=== PATIENT | female | born 1955 | race Caucasian/White ===

== ENCOUNTER 2016-09-24 14:47 | Emergency (ER) | payer OTHER ==
[~2016-09-24] VITALS: Ht 154.9 cm; Wt 78.0 kg
[~2016-09-24 14:47] MED LIST: ASPI81TA28 PO; BCTROWC TOP; BETA0.1O TOP; CETI10TA84 PO; CHOL200010 PO; CYM/30 PO; CYM/60 PO; GABA800T PO; HMLI SQ; INSDGI SC; KETO2CRE14 TOP; LAMO100T16 PO; LPT/40 PO; MECL1TAB42 PO; MELO15TA4 PO; MEMA5TAB2 PO; MULTTAB58 PO; OMEP-199 PO; ONDA4TAB46 PO; OXYB5TAB21 PO; OXYC-57 PO; PHEN32.44 PO; RANI300T2 PO; SENN8.6T94 PO; THIA100T11 PO; TRIA0.1C20 TOP
[2016-09-24 14:51] VITALS: TEMP 36.9; Ht 154.9 cm; Wt 78.0 kg
--- NOTE | 2016-09-24 15:39 | EMERGENCY ROOM VISIT NOTE ---
History Report prepared by Malissa: Juan Carlos Garcia Under the Supervision of: Dr. Craig Crowell M.D. First contact with patient: 15:26 Chief Complaint: SINUS CONGESTION/PRESSURE Stated Complaint: SINUS, SORE EARS, FEVER, SWELLING ALL THE TIME Nursing Triage Summary: patient with fever chills cough and congestion for two weeks. History of Present Illness The patient is a 61 year old female who presents to the Emergency Room with complaints of persistent sinus congestion beginning 2 weeks ago. She notes she has had fevers for the past two weeks ranging from 99 to 103. She states she has called 6 times to make an appointment with her PCP but has not been able to be seen. She notes her sinuses were infected, they seemed to clear, but are now infected again. She adds her ears are also now infected. The patient reports having occasional shortness of breath but uses an inhaler which relieves this. She denies passing out. The patient states she has been sweating for 4 months from her head to hips which is worse when she has a fever. She reports she had an US on her pituitary gland and it was thought this was the cause of her sweating. The patient states she was admitted last month with sepsis and pneumonia. She is not currently on steroids and she has finished her Penicillin and Augmentin. The patient lives alone and notes having a history of asthma. She adds she recently broke her right foot. Source of History: patient Onset: 2 weeks ago Position: other (sinus) Quality: other (sinus congestion/illness) Timing: other (persistent) Associated Symptoms: + SOB, + fevers (99 to 103), No LOC Note: The patient notes her ears feel infected, and notes sweating for 4 months. Review of Systems See HPI for pertinent positives & negatives. A total of 10 systems reviewed and were otherwise negative. Past Medical & Surgical Medical Problems: (1) Alopecia (2) Altered mental state (3) Ankle fracture, right (4) Chronic back pain (5) CVA (cerebral vascular accident) (6) Depression (7) Diabetes mellitus type 2 in obese (8) Diabetic peripheral neuropathy associated with type 2 diabetes mellitus (9) Diastolic dysfunction (10) Dyslipidemia (11) Epilepsy (12) Gastroparesis (13) Generalized anxiety disorder (14) Generalized osteoarthritis (15) GERD (gastroesophageal reflux disease) (16) Migraine (17) Obesity (BMI 30.0-34.9) (18) WESTON (obstructive sleep apnea) (19) Restless leg syndrome (20) Trimalleolar fracture Surgical Problems: (1) History of carpal tunnel surgery (2) History of cholecystectomy (3) History of tonsillectomy and adenoidectomy (4) History of total hysterectomy Family History Diabetes mellitus FH: heart disease Hypertension Kidney disease Kidney stones No pertinent family history Seizures Social History Smoking Status: Never Smoker Alcohol Use: none Drug Use: none Marital Status: Occupation Status: disabled Current/Historical Medications Scheduled Aspirin (Aspirin Ec), 81 MG PO DAILY Atorvastatin (Lipitor), 40 MG PO DAILY Cetirizine (Zyrtec), 10 MG PO DAILY Cholecalciferol (Vitamin D), 2,000 INTER.UNIT PO DAILY Duloxetine HCl (Cymbalta), 30 MG PO HS Duloxetine HCl (Cymbalta), 60 MG PO HS Gabapentin (Neurontin), 800 MG PO TID Insulin Glargine (Lantus), 15 UNITS SC AMPM Insulin Lispro (Humalog), 10 UNITS SQ WM Ketoconazole 2% (Nizoral 2%), 1 APPLN TOP DAILY Lamotrigine (Lamictal), 250 MG PO BID Memantine Hcl (Namenda), 5 MG PO BID Multiple Vitamin (Multivitamin), 1 TAB PO DAILY Omeprazole Magnesium (Omeprazole Magnesium), 20.6 MG PO DAILY Oxybutynin Chloride (Ditropan Xl), 5 MG PO DAILY Phenobarbital (Phenobarbital), 64.8 MG PO BID Ranitidine (Zantac), 300 MG PO HS Sennosides (Sennosides), 17.2 MG PO BID Thiamine Hcl (Vitamin B-1), 100 MG PO DAILY Triamcinolone Acet 0.1% (Aristocort 0.1%), 1 APPLN TOP BID UD Scheduled PRN Betamethasone Saniya 0.1% (Valisone 0.1%), 1 APPLN TOP BID PRN for Itch/Scalp Meclizine Hcl (Meclizine Hcl), 25 MG PO TID PRN for Dizziness Meloxicam (Meloxicam), 15 MG PO TID PRN for Pain Morphine Sulfate Ir (Morphine Sulfate Ir), 15 MG PO TID PRN for Pain Mupirocin 2% (Bactroban 2%), 1 APPLN TOP TID PRN for Sores on Thighs Ondansetron Hcl (Zofran), 4 MG PO Q6H PRN for Nausea Allergies Coded Allergies: Neomycin (Verified Allergy, Intermediate, rash, 05/14/16) Rosiglitazone (Verified Allergy, Intermediate, edema, 05/14/16) Sulfa Antibiotics (Verified Allergy, Intermediate, rash, 05/14/16) Sumatriptan (Verified Allergy, Intermediate, rash, 05/14/16) Dihydroergotamine (Verified Allergy, Unknown, unknown, 05/14/16) Phenytoin (Verified Allergy, Unknown, unknown, 05/14/16) Moxifloxacin (Verified Adverse Reaction, Severe, seizure, 05/14/16) Tramadol (Verified Adverse Reaction, Severe, seizure, 05/14/16) Donepezil (Verified Adverse Reaction, Intermediate, angry, 05/14/16) Latex (Verified Adverse Reaction, Intermediate, BURN, , 05/14/16) Quetiapine (Verified Adverse Reaction, Intermediate, weakness in legs, 05/14) Rizatriptan (Verified Adverse Reaction, Intermediate, itching, 05/14/16) Quinine (Verified Adverse Reaction, Mild, nausea/vomiting, 05/14/16) Verapamil (Verified Adverse Reaction, Mild, NAUSEA VOMITING, 05/14/16) Physical Exam Vital Signs Date Time Temp Pulse Resp B/P Pulse Ox O2 Delivery O2 Flow Rate FiO2 09/24/16 16:18 89 18 159/80 98 Room Air 09/24/16 14:51 36.9 97 20 121/93 99 Room Air Physical Exam GENERAL: Patient is well appearing and in no acute distress. HEENT: No acute trauma, normocephalic atraumatic, mucous membranes moist, no nasal congestion, no scleral icterus. EARS: right: mild effusion, no erythema; left: normal TMs. NECK: No stridor, no adenopathy, no meningismus, trachea is midline. LUNGS: No dyspnea. Clear to auscultation and equal bilaterally. No wheeze, no rhonchi. HEART: Regular rate and rhythm. No murmurs, rubs, gallops appreciated. ABDOMEN: Soft, nontender, bowel sounds positive, no masses appreciated, no peritonitis. BACK: No midline tenderness, no CVA tenderness EXTREMITIES: Normal motion all extremities, no cyanosis, no edema. Boot noted on right lower leg. NEUROLOGIC: Alert and oriented, no acute motor or sensory deficits, no focal weakness, cranial nerves grossly intact. SKIN: No rash, no jaundice, no diaphoresis. Medical Decision & Procedures ER Provider Diagnostic Interpretation: X ray results and stated below per my interpretation and radiologist interpretation. Other radiology results and stated below per my review and radiologist interpretation: CHEST ONE VIEW PORTABLE FINDINGS: The cardiac and mediastinal contours remain stable. The left central line is been removed. There had been interval resolution of the interstitial edema pattern. Slight prominence of the left basilar markings, while nonspecific are likely atelectatic. There is no lobar consolidation. There is no failure. There are no pleural effusions. There is an old ununited proximal right humeral fracture with erosive changes. IMPRESSION: 1. Interval removal of the left central line 2. Interval resolution of the interstitial edema 3. Wispy opacities at the left lung base, likely atelectatic Electronically signed by: Edwin Patrick M.D. 09/24/2016 3:52 PM Dictated Date/Time: 09/24/2016 3:50 PM Laboratory Results Test 09/24/16 15:35 Influenza Type A Antigen Neg for Influ A (NEG) Influenza Type B Antigen Neg for Influ B (NEG) Laboratory results as reviewed by me. ED Course 1528: The patient was evaluated in room B5. A complete history and physical exam was performed. I offered to called her PCP to set up an appointment and she declined. 1555: I reassessed the patient and she is feeling the same. 1616: The patient would like to go home and does not want any further lab testing. 1620: Reevaluated the patient. Discussed results and discharge instructions: She verbalized understanding and agreement. The patient is ready for discharge. Medical Decision 61 yr old female arrives for evaluation of runny nose and cough. She looks well and is in no distress. She is requesting evaluation for her periodic sweating over the last 4 months though admits she has had extensive work-up for this. Admits she was seen at local outpatient ortho clinic before coming over here. She has normal CXR without evidence of pneumonia re-occurrence. Patient after CXR is requesting discharge. Initially stated she was OK with blood taken but she is going home anyways. As she is not septic, in no distress and vitals normal I do not see clear indication for checking these if she is going home anyways. Flu is negative. She will follow up with PCP. She has report of persistent sweating though is not sweating here and this has apparently been worked up extensively. She likely has mild URI that seems to be going around the area. RTED with worsening or other concerns. [place] Drug Monitoring Program Search Results: patient reviewed within database Drug Monitoring Findings: Multiple control prescriptions over the last few months. Impression Primary Impression: Upper respiratory infection Scribe Attestation The scribe's documentation has been prepared under my direction and personally reviewed by me in its entirety. I confirm that the note above accurately reflects all work, treatment, procedures, and medical decision making performed by me. Departure Information Dispostion Home / Self-Care Referrals No Doctor, Assigned (PCP) Patient Instructions ED URI Viral, My [facility] Additional Instructions It is important you have Primary Care Provider to help evaluate your medical conditions. We are always here to help. Problem Qualifiers Primary Impression: Upper respiratory infection URI type: unspecified URI Qualified Codes: J06.9 - Acute upper respiratory infection, unspecified
[2016-09-24] MEDS ORDERED: MORP15TA PO (15:51)
[2016-09-24] MEDS ORDERED: MELO15TA4 PO (15:52)
--- NOTE | 2016-09-24 15:54 | DIAGNOSTIC IMAGING REPORT ---
CHEST ONE VIEW PORTABLE CLINICAL HISTORY: cough FEVER COMPARISON STUDY: 05/13/2016 FINDINGS: The cardiac and mediastinal contours remain stable. The left central line is been removed. There had been interval resolution of the interstitial edema pattern. Slight prominence of the left basilar markings, while nonspecific are likely atelectatic. There is no lobar consolidation. There is no failure. There are no pleural effusions. There is an old ununited proximal right humeral fracture with erosive changes.[ IMPRESSION: 1. Interval removal of the left central line 2. Interval resolution of the interstitial edema 3. Wispy opacities at the left lung base, likely atelectatic Electronically signed by: Edwin Patrick M.D. 09/24/2016 3:52 PM Dictated Date/Time: 09/24/2016 3:50 PM
[2016-09-24 16:18] VITALS: BP 159/80; PULSE 89; O2SAT 98
== END 2016-09-24 16:32 | disposition home or self-care (01) ==
LOC: C.EDB 14:49
DX: J06.9 Acute upper respiratory infection, unspecified (principal); Z86.73 Personal history of transient ischemic attack (TIA), and cerebral infarction without residual deficits; E11.40 Type 2 diabetes mellitus with diabetic neuropathy, unspecified; E78.5 Hyperlipidemia, unspecified; G40.909 Epilepsy, unspecified, not intractable, without status epilepticus; K31.84 Gastroparesis; M19.90 Unspecified osteoarthritis, unspecified site; K21.9 Gastro-esophageal reflux disease without esophagitis; G47.33 Obstructive sleep apnea (adult) (pediatric); E66.9 Obesity, unspecified; G25.81 Restless legs syndrome; Z83.3 Family history of diabetes mellitus; Z79.82 Long term (current) use of aspirin; Z79.4 Long term (current) use of insulin; Z79.899 Other long term (current) drug therapy

== ENCOUNTER → 2017-04-17 | Outpatient (CLI) | payer OTHER ==
[~2017-04-17] MED LIST changes: +MORP15TA PO; -OXYC-57 PO
[2017-04-17 17:45] LABS: ALT/SGPT 30 U/L (12-78); AST/SGOT 22 U/L (15-37); BLOOD UREA NITROGEN 26 mg/dl (7-18); BUN/CREATININE RATIO 27.8 (10-20); CALCIUM 8.3 mg/dl (8.5-10.1); CARBON DIOXIDE 23 mmol/L (21-32); CHLORIDE 110 mmol/L (98-107); CREATININE 0.93 mg/dl (0.60-1.20); GLUCOSE 131 mg/dl (70-99); POTASSIUM 4.7 mmol/L (3.5-5.1); SODIUM 138 mmol/L (136-145)
[2017-04-17 17:56] LABS: ALB/GLOB RATIO 0.7 (0.9-2); ALKALINE PHOSPHATASE 228 U/L (45-117); CHOLESTEROL 172 mg/dl (0-200); CHOLESTEROL/HDL RATIO 2.9; HDL CHOLESTEROL 60 mg/dl; LDL CHOLESTEROL CALCULATED 69 mg/dl; THYROID STIMULATING HORMONE 0.505 uIu/ml (0.300-4.500); TRIGLYCERIDES 214 mg/dl (0-150); VERY LOW DENSITY LIPOPROT CALC 43 mg/dl
[2017-04-18 07:49] LABS: ESTIMATED AVERAGE GLUCOSE 292 mg/dl; HA1C FLAG Normal (Normal)
== END | disposition home or self-care (01) ==
LOC: C.LABPBG 13:58
PROVIDERS: ATTEND Neuromusculoskeletal Medicine & OMM
DX: Z00.00 Encounter for general adult medical examination without abnormal findings (principal); E11.9 Type 2 diabetes mellitus without complications

== ENCOUNTER → 2017-05-21 | Outpatient (CLI) | payer OTHER ==
[2017-05-21 16:08] LABS: ALKALINE PHOSPHATASE 240 U/L (45-117); ALT/SGPT 28 U/L (12-78); AST/SGOT 24 U/L (15-37)
== END | disposition home or self-care (01) ==
LOC: C.LAB1850 14:10
PROVIDERS: ATTEND Neuromusculoskeletal Medicine & OMM
DX: R79.89 Other specified abnormal findings of blood chemistry (principal)

== ENCOUNTER → 2017-10-06 | Outpatient (CLI) | payer OTHER ==
[~2017-10-06] MED LIST changes: +MELO-83 PO; -MELO15TA4 PO
[2017-10-06 17:35] LABS: CREATININE RANDOM URINE 74.2 mg/dl
== END | disposition home or self-care (01) ==
LOC: C.LABSPEC 15:26
PROVIDERS: ATTEND Physician Assistant
DX: E11.65 Type 2 diabetes mellitus with hyperglycemia (principal)

== ENCOUNTER → 2017-11-20 | Outpatient (CLI) | payer OTHER ==
[2017-11-20 17:35] LABS: BASO % 0.3 %; BASO ABS # 0.03 K/uL (0-0.2); EOS % 1.5 %; EOS ABS # 0.15 K/uL (0-0.5); HEMATOCRIT 37.7 % (37-47); IG# 0.05 K/uL (0.00-0.02); LYMPH % 23.6 %; LYMPH ABS # 2.41 K/uL (1.2-3.4); MEAN CELL VOLUME 83.8 fL (80-100); MEAN CORPUSCULAR HEMOGLOBIN 28.9 pg (25-34); MEAN CORPUSCULAR HGB CONC 34.5 g/dl (32-36); MEAN PLATELET VOLUME 9.8 fL (7.4-10.4); MONO % 3.8 %; MONO ABS # 0.39 K/uL (0.11-0.59); NEUT % 70.3 %; NEUT ABS # 7.18 K/uL (1.4-6.5); PLATELET COUNT 235 K/uL (130-400); RED CELL DISTRIBUTION WIDTH CV 13.3 % (11.5-14.5); RED CELL DISTRIBUTION WIDTH SD 40.3 fL (36.4-46.3); WHITE BLOOD COUNT 10.21 K/uL (4.8-10.8)
[2017-11-20 17:56] LABS: CREATININE RANDOM URINE 26.4 mg/dl
[2017-11-20 19:10] LABS: ALBUMIN 3.5 gm/dl (3.4-5.0); ALKALINE PHOSPHATASE 242 U/L (45-117); ALT/SGPT 25 U/L (12-78); AST/SGOT 16 U/L (15-37); BLOOD UREA NITROGEN 13 mg/dl (7-18); CALCIUM 9.1 mg/dl (8.5-10.1); CARBON DIOXIDE 25 mmol/L (21-32); POTASSIUM 3.9 mmol/L (3.5-5.1); SODIUM 132 mmol/L (136-145); TOTAL PROTEIN 8.1 gm/dl (6.4-8.2)
[2017-11-20 19:11] LABS: GLUCOSE 429 mg/dl (70-99)
[2017-11-21 07:28] LABS: HEMOGLOBIN A1C 11.5 % (4.5-5.6)
== END | disposition home or self-care (01) ==
LOC: C.LABPBG 15:52
PROVIDERS: ATTEND Family Medicine
DX: M79.672 Pain in left foot (principal); L08.9 Local infection of the skin and subcutaneous tissue, unspecified; E11.65 Type 2 diabetes mellitus with hyperglycemia

== ENCOUNTER → 2017-11-24 | Outpatient (CLI) | payer OTHER | END | disposition home or self-care (01) | LOC: C.LABSPEC 05:25 | PROVIDERS: ATTEND Podiatrist Foot & Ankle Surgery | DX: E11.9 Type 2 diabetes mellitus without complications (principal); L03.116 Cellulitis of left lower limb ==

== ENCOUNTER → 2018-04-13 | Outpatient (CLI) | payer OTHER ==
[~2018-04-13] MED LIST changes: -BCTROWC TOP; -BETA0.1O TOP; -CETI10TA84 PO; +DICL-201 PO; -HMLI SQ; -INSDGI SC; +INSDGIPEN SC; +INSU100I SC; -KETO2CRE14 TOP; -MELO-83 PO; -MORP15TA PO; -MULTTAB58 PO; -OMEP-199 PO; -ONDA4TAB46 PO; +PRLSR20 PO; -SENN8.6T94 PO; -THIA100T11 PO; -TRIA0.1C20 TOP
[2018-04-13 16:43] LABS: BASO % 0.3 %; BASO ABS # 0.03 K/uL (0-0.2); EOS % 2.6 %; EOS ABS # 0.26 K/uL (0-0.5); HEMOGLOBIN 12.4 g/dL (12.0-16.0); IG# 0.03 K/uL (0.00-0.02); LYMPH % 28.3 %; LYMPH ABS # 2.78 K/uL (1.2-3.4); MEAN CELL VOLUME 85.6 fL (80-100); MEAN CORPUSCULAR HEMOGLOBIN 28.7 pg (25-34); MEAN CORPUSCULAR HGB CONC 33.5 g/dl (32-36); MEAN PLATELET VOLUME 10.6 fL (7.4-10.4); MONO % 4.7 %; MONO ABS # 0.46 K/uL (0.11-0.59); NEUT % 63.8 %; NEUT ABS # 6.27 K/uL (1.4-6.5); PLATELET COUNT 275 K/uL (130-400); RED CELL DISTRIBUTION WIDTH CV 13.6 % (11.5-14.5); WHITE BLOOD COUNT 9.83 K/uL (4.8-10.8)
[2018-04-13 17:14] LABS: FOLLICLE STIMULAT HORMONE 39.68 IU/L; PROLACTIN 0.76 ng/mL
[2018-04-13 17:22] LABS: ALT/SGPT 23 U/L (12-78); AST/SGOT 15 U/L (15-37); BLOOD UREA NITROGEN 10 mg/dl (7-18); CALCIUM 8.8 mg/dl (8.5-10.1); CARBON DIOXIDE 24 mmol/L (21-32); CHOLESTEROL 225 mg/dl (0-200); CREATININE 0.91 mg/dl (0.60-1.20); GLUCOSE 244 mg/dl (70-99); LDL CHOLESTEROL CALCULATED 137 mg/dl; POTASSIUM 4.2 mmol/L (3.5-5.1); SODIUM 133 mmol/L (136-145)
[2018-04-14 06:15] LABS: HEMOGLOBIN A1C 11.7 % (4.5-5.6)
[2018-04-20 18:19] LABS: INSULIN LIKE GROWTH FACTOR-I 141 ng/mL (41-279)
== END | disposition home or self-care (01) ==
LOC: C.LABPBG 12:44
PROVIDERS: ATTEND Family Medicine
DX: R94.6 Abnormal results of thyroid function studies (principal); E11.65 Type 2 diabetes mellitus with hyperglycemia; E78.5 Hyperlipidemia, unspecified; I10 Essential (primary) hypertension; E55.9 Vitamin D deficiency, unspecified

== ENCOUNTER 2018-11-11 18:50 | Inpatient (IN) ==
[2018-11-11] MEDS ORDERED: SODIUM CHLORIDE 0.9% 1000ML 2,000 ML IV SCH (19:15)
[2018-11-11 19:34] LABS: Basophils # (auto) 0.04 K/uL (0-0.2); Basophils % (auto) 0.5 %; Eosinophils # (auto) 0.45 K/uL (0-0.5); Eosinophils % (auto) 5.1 %; Hematocrit (blood only) 27.5 % (37-47); Hemoglobin 9.1 g/dL (12.0-16.0); Immature Granulocytes # (auto) 0.03 K/uL (0.00-0.02); Immature Granulocytes % (auto) 0.3 %; Lymphocytes # (auto) 2.44 K/uL (1.2-3.4); Lymphocytes % (auto) 27.5 %; Mean Corpuscular Hgb Conc 33.1 g/dL (32-36); Mean Corpuscular Volume 86.8 fL (80-100); Mean Platelet Volume 10.3 fL (7.4-10.4); Monocytes # (auto) 0.53 K/uL (0.11-0.59); Neutrophils # (auto) 5.39 K/uL (1.4-6.5); Neutrophils % (auto) 60.6 %; Platelet Count 187 K/uL (130-400); RDW Standard Deviation 41.5 fL (36.4-46.3); Red Blood Count 3.17 M/uL (4.2-5.4); White Blood Count 8.88 K/uL (4.8-10.8)
[2018-11-11 19:39] LABS: Base Excess VBG -5.3 mEq/L; Oxygen Saturation VBG 84.4 %; pH VBG 7.35 (7.36-7.41)
[2018-11-11 19:49] LABS: Prothrombin Time 10.1 Seconds (9.0-12.0)
--- NOTE | 2018-11-11 19:50 | XRay Report ---
XR chest 1V portable HISTORY: 63 years-old Female weakness acute generalized weakness COMPARISON: Chest radiograph 02/03/2018 TECHNIQUE: Portable AP view of the chest FINDINGS: Cardiomediastinal and hilar silhouettes are unchanged. Mild right hemidiaphragmatic elevation. No pne umothorax, pleural effusion or overt pulmonary edema. Subsegmental left basilar opacities suggest ate lectasis/scarring. Remote posttraumatic with advanced degenerative changes about the right shoulder r edemonstrated. Degenerative changes of the left shoulder and spine also noted. IMPRESSION: No acute process. The above report was generated using voice recognition software. It may contain grammatical, syntax o r spelling errors. Electronically signed by: Andrews De Guzman M.D. 11/11/2018 7:49 PM
[2018-11-11 19:54] LABS: iSTAT Creatinine 1.6 mg/dl (0.6-1.3); iSTAT Hemoglobin 9.5 g/dl (12.0-16.0); iSTAT Ionized Calcium 1.17 mmol/l (1.12-1.32); iSTAT Potassium 5.2 mEq/L (3.3-5.0)
[2018-11-11 19:58] LABS: Alanine Aminotransferase 15 U/L (12-78); Albumin Globulin Ratio 0.7 (0.9-2); Albumin Level 2.8 gm/dl (3.4-5.0); Alkaline Phosphatase 196 U/L (45-117); Aspartate Aminotransferase 9 U/L (15-37); BUN Creatinine Ratio 19.8 (10-20); Bilirubin,Total 0.1 mg/dl (0.2-1); Blood Urea Nitrogen 36 mg/dl (7-18); Calcium 7.9 mg/dl (8.5-10.1); Carbon Dioxide 20 mmol/L (21-32); Chloride 104 mmol/L (98-107); Creatine Kinase 84 U/L (26-192); Creatinine Clr Calc Pharmacy 32.7 ml/min; Est GFR (Non-African American) 28.5; Globulin 4.1 gm/dl (2.5-4.0); Glucose 407 mg/dl (70-99); Sodium 131 mmol/L (136-145); Total Protein 6.9 gm/dl (6.4-8.2); Troponin I < 0.015 ng/ml (0-0.045)
[2018-11-11] MEDS ORDERED: NovoLIN-R INSULIN PER UNIT CHARGE IV STA ×2 (19:58→21:20)
[2018-11-11 20:09] LABS: Beta-Hydroxybutyrate 0.74 mg/dl (0.2-2.81)
[2018-11-11 21:58] LABS: Appearance Urine Clear (Clear); Bacteria Urine Automated Negative (Negative); Bilirubin Urine Negative (Negative); Blood Urine Negative (Negative); Cast Urine Automated 0 /lpf (0-5); Color Urine Yellow; Epithelial Cell Urine Auto 20-30 /lpf (0-5); Glucose Urine UA 2+ (Negative); Ketones Urine Negative (Negative); Leukocyte Esterase Urine Negative (Negative); Nitrite Urine Negative (Negative); Protein Urine Trace (Negative); RBC Urine Automated 0-4 /hpf (0-4); Specific Gravity Urine 1.019 (1.000-1.030); Urobilinogen Urine Negative (Negative)
[2018-11-11] MEDS ORDERED: LORazepam 1 MG TAB SL STA (22:05)
--- NOTE | 2018-11-11 22:45 | CT Scan Report ---
CT head/brain wo con CLINICAL HISTORY: 63 years-old Female with confused. Acutely altered mental status with confusion TECHNIQUE: Multiple axial CT images of the head were obtained without contrast. A dose lowering tech nique was utilized adhering to the principles of ALARA. CT DOSE: 537.48 mGy.cm COMPARISON: CT head 05/13/2016. FINDINGS: No acute intracranial hemorrhage, midline shift, intracranial mass, hydrocephalus, territorial ischem ia or abnormal extra-axial collection. The calvarium is intact. Hyperostosis frontalis interna. The paranasal sinuses, mastoid air cells, an d middle ear cavities are clear. Prior bilateral cataract repair. IMPRESSION: No acute intracranial abnormality. The above report was generated using voice recognition software. It may contain grammatical, syntax o r spelling errors. Electronically signed by: Andrews De Guzman M.D. 11/11/2018 10:44 PM
--- NOTE | 2018-11-11 23:35 | Emergency Department Note ---
Entered by Tree Venegas acting as a scribe for Andre Nair DO History of Present Illness General Chief complaint: Hyperglycemia Stated complaint: WEAKNESS, HYPERGLYCEMIA Source: patient, EMS and other (nurse) History of Present Illness Onset (ago): minute(s) (prior to arrival) Location: head (global) Pain Consistency: + other (persistent) Quality: + other (hyperglycemia) Associated symptoms: + cough and + weakness The patient is a 63 year old female who presents to the Emergency Room with persistent hyperglycemia measured prior to arrival. The nurse reports that the patient was evaluated at her PCP prior to arrival in [place] for new ge neralized weakness over the past two days, and her blood sugar was over 500 at the time and confusion. Per EMS, her blood sugar was [address] the hospital. The patient states that she has been taking her diabetes and seizure medication, but she has not been taking some of her other medications recently because it takes too long to count them out. The patient states that she was started on prednisone two days ago for breathing difficulties and chronic back pain. She reports a headache beginning yesterday that started gradually and is similar to prior migraines. She notes a dry cough. She denies abdominal pain or urinary symptoms. She states that her most recent dose of insulin was at about 11:00 this morning. No other exacerbating or remitting factors. Home Medications Home Medications Medication Instructions Recorded Confirmed Type albuterol sulfate [ProAir HFA] 2 puff INHALATION Q4 PRN 11/11/18 11/11/18 History amlodipine 10 mg PO DAILY 11/11/18 11/11/18 History aspirin [Aspirin Low Dose] 81 mg PO DAILY 11/11/18 11/11/18 History atorvastatin 40 mg PO HS 11/11/18 11/11/18 History cetirizine [Zyrtec] 10 mg PO DAILY 11/11/18 11/11/18 History dulaglutide [Trulicity] 1.5 mg SUBCUT WK 11/11/18 11/11/18 History duloxetine 60 mg PO DAILY 11/11/18 11/11/18 History duloxetine [Cymbalta] 30 mg PO DAILY 11/11/18 11/11/18 History ergocalciferol (vitamin D2) 50,000 unit PO WK 11/11/18 11/11/18 History [Vitamin D2] ferrous sulfate [Iron (ferrous 325 mg PO DAILY 11/11/18 11/11/18 History sulfate)] fluticasone [Flonase Allergy 1 - 2 spray INTRANASAL DAILY 11/11/18 11/11/18 History Relief] gabapentin 1,600 mg PO AMPM 11/11/18 11/11/18 History insulin aspart U-100 [Novolog 14 unit SUBCUT BID 11/11/18 11/11/18 History Flexpen U-100 Insulin] insulin aspart U-100 [Novolog 15 units SUBCUT UD 11/11/18 11/11/18 History Flexpen U-100 Insulin] insulin glargine [Lantus Solostar 24 unit SUBCUT HS 11/11/18 11/11/18 History U-100 Insulin] ketorolac 1 ml IM UD 11/11/18 11/11/18 History lamotrigine [Lamictal] 200 mg PO BID 11/11/18 11/11/18 History meclizine 25 mg PO TID PRN 11/11/18 11/11/18 History memantine 5 mg PO BID 11/11/18 11/11/18 History menthol-zinc oxide [Calmoseptine] 1 applic TOPICAL DAILY PRN 11/11/18 11/11/18 History nortriptyline [Pamelor] 50 mg PO HS 11/11/18 11/11/18 History ondansetron HCl 4 mg PO TID PRN 11/11/18 11/11/18 History oxybutynin chloride 5 mg PO DAILY 11/11/18 11/11/18 History phenobarbital 64.8 mg PO BID 11/11/18 11/11/18 History pramipexole 1 mg PO DAILY 11/11/18 11/11/18 History ramipril 10 mg PO DAILY 11/11/18 11/11/18 History ranitidine HCl [Zantac] 300 mg PO HS 11/11/18 11/11/18 History ropinirole 2 mg PO TID 11/11/18 11/11/18 History Allergies Allergy/AdvReac Type Severity Reaction Status Date / Time neomycin Allergy Intermediate rash Verified 11/11/18 20:07 rosiglitazone Allergy Intermediate edema Verified 11/11/18 20:07 Sulfa (Sulfonamide Allergy Intermediate rash Verified 11/11/18 20:07 Antibiotics) sumatriptan Allergy Intermediate rash Verified 11/11/18 20:07 dihydroergotamine Allergy Unknown unknown Verified 11/11/18 20:07 phenytoin Allergy Unknown unknown Verified 11/11/18 20:07 acetaminophen [From Percocet] Allergy Unknown Verified 11/11/18 20:08 indomethacin Allergy Unknown Verified 11/11/18 20:08 oxycodone [From Percocet] Allergy Unknown Verified 11/11/18 20:08 moxifloxacin AdvReac Severe seizure Verified 11/11/18 20:07 tramadol AdvReac Severe seizure Verified 11/11/18 20:07 donepezil AdvReac Intermediate angry Verified 11/11/18 20:07 latex AdvReac Intermediate BURN, Verified 11/11/18 20:07 quetiapine AdvReac Intermediate weakness Verified 05/14/16 08:15 in legs rizatriptan AdvReac Intermediate itching Verified 05/14/16 08:15 quinine AdvReac Mild nausea/vomi Verified 05/14/16 08:15 ting verapamil AdvReac Mild NAUSEA Verified 05/14/16 08:15 VOMITING Past Med/Surg History Medical History Chronic back pain (Chronic) Diabetic peripheral neuropathy associated with type 2 diabetes mellitus (Chronic) GERD (gastroesophageal reflux disease) (Chronic) Generalized osteoarthritis (Chronic) Migraine (Chronic) Alopecia (Chronic) Gastroparesis (Chronic) Epilepsy (Chronic) Generalized anxiety disorder (Chronic) Restless leg syndrome (Chronic) Diabetes mellitus type 2 in obese (Chronic) Depression (Chronic) Dyslipidemia (Chronic) CVA (cerebral vascular accident) Surgical History History of cholecystectomy (Resolved) Family History Other Diabetes Heart disease Seizures Social History Feels Safe at Home: Yes Smoking Status: Never smoker Review of Systems See HPI for pertinent positives & negatives. and A total of 10 systems reviewed and were otherwise negative Physical Exam Vital Signs Vital Signs - 24 hr 11/11/18 19:04 11/11/18 20:40 11/11/18 21:54 Temperature 36.7 C Temperature Source Oral Sepsis Recent Fever Within 48 Hours No Sepsis Action Taken by Nursing No Action Required Pulse Rate 64 64 Pulse Rate [Finger] 69 Respiratory Rate 19 17 Respiratory Effort / Characteristics Respiratory Depth Respiratory Pattern Blood Pressure 129/69 Blood Pressure [Left Arm] 139/55 L Blood Pressure Mean 89 Blood Pressure Mean [Left Arm] 83 Blood Pressure Position [Left Arm] Pulse Oximetry 97 97 97 Oxygen Delivery Method Room Air Room Air 11/11/18 21:55 11/11/18 23:28 Temperature Temperature Source Sepsis Recent Fever Within 48 Hours Sepsis Action Taken by Nursing Pulse Rate Pulse Rate [Finger] 65 68 Respiratory Rate 18 Respiratory Effort / Characteristics Non-Labored Spontaneous Respiratory Depth Normal Respiratory Pattern Regular Blood Pressure Blood Pressure [Left Arm] 118/58 L 138/64 Blood Pressure Mean Blood Pressure Mean [Left Arm] 78 88 Blood Pressure Position [Left Arm] Lying Pulse Oximetry 97 95 Oxygen Delivery Method Room Air Room Air GENERAL: Sitting up in bed, disheveled, no distress, falling asleep quickly and slurring words EYE EXAM: normal conjunctiva. PERRL and EOM's grossly intact. OROPHARYNX: no exudate, no erythema, lips, buccal mucosa, and tongue normal and mucous membranes are dry NECK: supple, no nuchal rigidity, no adenopathy, non-tender LUNGS: Clear to auscultation. Normal chest wall mechanics HEART: no murmurs, S1 normal and S2 normal ABDOMEN: abdomen soft, non-tender, normo-active bowel, sounds, no masses, no rebound or guarding. BACK: Back is symmetrical on inspection and there is no deformity, no midline tenderness, no CVA tenderness. SKIN: no rashes and no bruising UPPER EXTREMITIES: upper extremities are grossly normal. LOWER EXTREMITIES: No pitting edema. NEURO EXAM: Oriented to person, place but believes it is 2010. Slurred speech. Legs are weak but no focal deficit in the upper or lower extremities. Course ED COURSE: Vital signs were reviewed and were normal The patients medical record was reviewed The above diagnostic studies were performed and reviewed. ED treatments and interventions as stated above. 1856: The patient was evaluated in room C4. A complete history and physical examination was performed. 2249: I consulted Dr. Olivares [facility] Hospitalist. The patient will be reevaluated for hospitalization. Based on the patients age, coexisting illnesses, exam and lab findings the decision to treat as an inpatient was made. The patient remained stable while under my care. The patient will be evaluated for further management. Consultations Consultation #1: I consulted Dr. Olivares [facility] Hospitalist. The patient will be reevaluated for hospitalization. Time: 22:50 Administered Medications Discontinued Medications Sodium Chloride (Nss 1000ml) 2,000 mls @ 999 mls/hr IV .Q2H1M CARMELO Stop: 11/11/18 21:15 Last Infusion: 11/11/18 21:17 Dose: 0 mls/hr Documented by: [id number] Admin: 11/11/18 19:14 Dose: 999 mls/hr Documented by: [id number] Insulin Human Regular (Novolin R U-100 Per Unit) 6 units IV NOW STA Stop: 11/11/18 19:59 Last Admin: 11/11/18 20:05 Dose: 6 units Documented by: [id number] Cosigned by: [id number] Insulin Human Regular (Novolin R U-100 Per Unit) 6 units IV NOW STA Stop: 11/11/18 21:21 Last Admin: 11/11/18 21:52 Dose: 6 units Documented by: [id number] Cosigned by: [id number] Lorazepam (Ativan) 0.5 mg SL NOW STA Stop: 11/11/18 22:06 Last Admin: 11/11/18 22:19 Dose: Not Given Documented by: [id number] Medical Decision Making Differential Diagnosis Differential Diagnosis includes but is not limited to dehydration, stroke, anemi a, hypoglycemia, hyponatremia, hypernatremia, urinary tract infection, pneumonia, bronchitis, sepsis, gastroenteritis, additional abdominal pathology, metabolic abnormalities and infections. Medical Records Attestation: I reviewed the patient's medical records. Home Medications Current Medication List: was personally reviewed by me Laboratory Data Attestation: I reviewed the patient's lab results. Result diagrams: 11/11/18 19:24 11/11/18 19:23 Lab Results 11/11/18 11/11/18 11/11/18 Range/Units 18:59 19:23 19:23 WBC (4.8-10.8) K/uL RBC (4.2-5.4) M/uL Hgb (12.0-16.0) g/dL POC Hgb (12.0-16.0) g/dl Hct (37-47) % POC Hct (37-47) % MCV (80-100) fL MCH (25-34) pg MCHC (32-36) g/dL RDW Std Deviation (36.4-46.3) fL RDW Coeff of Archana (11.5-14.5) % Plt Count (130-400) K/uL MPV (7.4-10.4) fL Immature Gran % (Auto) % Neut % (Auto) % Lymph % (Auto) % [place] % (Auto) % Eos % (Auto) % Baso % (Auto) % Immature Gran # (Auto) (0.00-0.02) K/uL Neut # (Auto) (1.4-6.5) K/uL Lymph # (Auto) (1.2-3.4) K/uL [place] # (Auto) (0.11-0.59) K/uL Eos # (Auto) (0-0.5) K/uL Baso # (Auto) (0-0.2) K/uL PT 10.1 (9.0-12.0) Seconds INR 1.0 (0.9-1.1) VBG pH (7.36-7.41) VBG pCO2 (38-50) mmHg VBG pO2 mmHg VBG HCO3 mmol/L VBG O2 Saturation % VBG Base Excess mEq/L Barometric Pressure mm/Hg POC Sodium (135-144) mEq/L Sodium 131 L (136-145) mmol/L POC Potassium (3.3-5.0) mEq/L Potassium 5.0 (3.5-5.1) mmol/L POC Chloride (101-112) mEq/L Chloride 104 (98-107) mmol/L Carbon Dioxide 20 L (21-32) mmol/L POC Total CO2 (24-31) mEq/l Anion Gap 7.0 (3-11) POC Anion Gap (16-25) mmol/L POC BUN (7-18) mg/dl BUN 36 H (7-18) mg/dl Creatinine 1.84 H (0.6-1.2) mg/dl POC Creatinine (0.6-1.3) mg/dl Est Cr Clr Drug Dosing 32.7 ml/min Est GFR ( Amer) 33.0 Est GFR (Non-Af Amer) 28.5 BUN/Creatinine Ratio 19.8 (10-20) Glucose 407 H* (70-99) mg/dl POC Glucose 415 H* (70-99) POC Glucose (other) (70-99) mg/dl Calcium 7.9 L (8.5-10.1) mg/dl POC Ioniz Calcium Onel (1.12-1.32) mmol/l Total Bilirubin 0.1 L (0.2-1) mg/dl AST 9 L (15-37) U/L ALT 15 (12-78) U/L Alkaline Phosphatase 196 H (45-117) U/L Total Creatine Kinase 84 (26-192) U/L Troponin I < 0.015 (0-0.045) ng/ml Total Protein 6.9 (6.4-8.2) gm/dl Albumin 2.8 L (3.4-5.0) gm/dl Globulin 4.1 H (2.5-4.0) gm/dl Albumin/Globulin Ratio 0.7 L (0.9-2) Beta-Hydroxybutyric Acd 0.74 (0.2-2.81) mg/dl Urine Color Urine Appearance (Clear) Urine pH (4.5-7.5) Ur Specific [place] (1.000-1.030) Urine Protein (Negative) Urine Glucose (UA) (Negative) Urine Ketones (Negative) Urine Blood (Negative) Urine Nitrite (Negative) Urine Bilirubin (Negative) Urine Urobilinogen (Negative) Ur Leukocyte Esterase (Negative) Urine WBC (Auto) (0-5) /hpf Urine RBC (Auto) (0-4) /hpf U Hyaline Cast (Auto) (0-5) /lpf U Epithel Cells (Auto) (0-5) /lpf Urine Bacteria (Auto) (Negative) Phenobarbital (15-40) mcg/mL 11/11/18 11/11/18 11/11/18 Range/Units 19:24 19:24 19:24 WBC 8.88 (4.8-10.8) K/uL RBC 3.17 L (4.2-5.4) M/uL Hgb 9.1 L (12.0-16.0) g/dL POC Hgb (12.0-16.0) g/dl Hct 27.5 L (37-47) % POC Hct (37-47) % MCV 86.8 (80-100) fL MCH 28.7 (25-34) pg MCHC 33.1 (32-36) g/dL RDW Std Deviation 41.5 (36.4-46.3) fL RDW Coeff of Archana 13.0 (11.5-14.5) % Plt Count 187 (130-400) K/uL MPV 10.3 (7.4-10.4) fL Immature Gran % (Auto) 0.3 % Neut % (Auto) 60.6 % Lymph % (Auto) 27.5 % [place] % (Auto) 6.0 % Eos % (Auto) 5.1 % Baso % (Auto) 0.5 % Immature Gran # (Auto) 0.03 H (0.00-0.02) K/uL Neut # (Auto) 5.39 (1.4-6.5) K/uL Lymph # (Auto) 2.44 (1.2-3.4) K/uL [place] # (Auto) 0.53 (0.11-0.59) K/uL Eos # (Auto) 0.45 (0-0.5) K/uL Baso # (Auto) 0.04 (0-0.2) K/uL PT (9.0-12.0) Seconds INR (0.9-1.1) VBG pH 7.35 L (7.36-7.41) VBG pCO2 37 L (38-50) mmHg VBG pO2 49 mmHg VBG HCO3 20 mmol/L VBG O2 Saturation 84.4 % VBG Base Excess -5.3 mEq/L Barometric Pressure 736.4 mm/Hg POC Sodium (135-144) mEq/L Sodium (136-145) mmol/L POC Potassium (3.3-5.0) mEq/L Potassium (3.5-5.1) mmol/L POC Chloride (101-112) mEq/L Chloride (98-107) mmol/L Carbon Dioxide (21-32) mmol/L POC Total CO2 (24-31) mEq/l Anion Gap (3-11) POC Anion Gap (16-25) mmol/L POC BUN (7-18) mg/dl BUN (7-18) mg/dl Creatinine (0.6-1.2) mg/dl POC Creatinine (0.6-1.3) mg/dl Est Cr Clr Drug Dosing ml/min Est GFR ( Amer) Est GFR (Non-Af Amer) BUN/Creatinine Ratio (10-20) Glucose (70-99) mg/dl POC Glucose (70-99) POC Glucose (other) (70-99) mg/dl Calcium (8.5-10.1) mg/dl POC Ioniz Calcium Onel (1.12-1.32) mmol/l Total Bilirubin (0.2-1) mg/dl AST (15-37) U/L ALT (12-78) U/L Alkaline Phosphatase (45-117) U/L Total Creatine Kinase (26-192) U/L Troponin I (0-0.045) ng/ml Total Protein (6.4-8.2) gm/dl Albumin (3.4-5.0) gm/dl Globulin (2.5-4.0) gm/dl Albumin/Globulin Ratio (0.9-2) Beta-Hydroxybutyric Acd (0.2-2.81) mg/dl Urine Color Urine Appearance (Clear) Urine pH (4.5-7.5) Ur Specific [place] (1.000-1.030) Urine Protein (Negative) Urine Glucose (UA) (Negative) Urine Ketones (Negative) Urine Blood (Negative) Urine Nitrite (Negative) Urine Bilirubin (Negative) Urine Urobilinogen (Negative) Ur Leukocyte Esterase (Negative) Urine WBC (Auto) (0-5) /hpf Urine RBC (Auto) (0-4) /hpf U Hyaline Cast (Auto) (0-5) /lpf U Epithel Cells (Auto) (0-5) /lpf Urine Bacteria (Auto) (Negative) Phenobarbital 7.4 L (15-40) mcg/mL 11/11/18 11/11/18 11/11/18 Range/Units 19:42 20:39 21:30 WBC (4.8-10.8) K/uL RBC (4.2-5.4) M/uL Hgb (12.0-16.0) g/dL POC Hgb 9.5 L (12.0-16.0) g/dl Hct (37-47) % POC Hct 28 L (37-47) % MCV (80-100) fL MCH (25-34) pg MCHC (32-36) g/dL RDW Std Deviation (36.4-46.3) fL RDW Coeff of Archana (11.5-14.5) % Plt Count (130-400) K/uL MPV (7.4-10.4) fL Immature Gran % (Auto) % Neut % (Auto) % Lymph % (Auto) % [place] % (Auto) % Eos % (Auto) % Baso % (Auto) % Immature Gran # (Auto) (0.00-0.02) K/uL Neut # (Auto) (1.4-6.5) K/uL Lymph # (Auto) (1.2-3.4) K/uL [place] # (Auto) (0.11-0.59) K/uL Eos # (Auto) (0-0.5) K/uL Baso # (Auto) (0-0.2) K/uL PT (9.0-12.0) Seconds INR (0.9-1.1) VBG pH (7.36-7.41) VBG pCO2 (38-50) mmHg VBG pO2 mmHg VBG HCO3 mmol/L VBG O2 Saturation % VBG Base Excess mEq/L Barometric Pressure mm/Hg POC Sodium 133 L (135-144) mEq/L Sodium (136-145) mmol/L POC Potassium 5.2 H (3.3-5.0) mEq/L Potassium (3.5-5.1) mmol/L POC Chloride 104 (101-112) mEq/L Chloride (98-107) mmol/L Carbon Dioxide (21-32) mmol/L POC Total CO2 19 L (24-31) mEq/l Anion Gap (3-11) POC Anion Gap 16.0 (16-25) mmol/L POC BUN 35 H (7-18) mg/dl BUN (7-18) mg/dl Creatinine (0.6-1.2) mg/dl POC Creatinine 1.6 H (0.6-1.3) mg/dl Est Cr Clr Drug Dosing ml/min Est GFR ( Amer) Est GFR (Non-Af Amer) BUN/Creatinine Ratio (10-20) Glucose (70-99) mg/dl POC Glucose 299 H (70-99) POC Glucose (other) 413 H* (70-99) mg/dl Calcium (8.5-10.1) mg/dl POC Ioniz Calcium Onel 1.17 (1.12-1.32) mmol/l Total Bilirubin (0.2-1) mg/dl AST (15-37) U/L ALT (12-78) U/L Alkaline Phosphatase (45-117) U/L Total Creatine Kinase (26-192) U/L Troponin I (0-0.045) ng/ml Total Protein (6.4-8.2) gm/dl Albumin (3.4-5.0) gm/dl Globulin (2.5-4.0) gm/dl Albumin/Globulin Ratio (0.9-2) Beta-Hydroxybutyric Acd (0.2-2.81) mg/dl Urine Color Yellow Urine Appearance Clear (Clear) Urine pH 5.0 (4.5-7.5) Ur Specific [place] 1.019 (1.000-1.030) Urine Protein Trace H (Negative) Urine Glucose (UA) 2+ H (Negative) Urine Ketones Negative (Negative) Urine Blood Negative (Negative) Urine Nitrite Negative (Negative) Urine Bilirubin Negative (Negative) Urine Urobilinogen Negative (Negative) Ur Leukocyte Esterase Negative (Negative) Urine WBC (Auto) 1-5 (0-5) /hpf Urine RBC (Auto) 0-4 (0-4) /hpf U Hyaline Cast (Auto) 0 (0-5) /lpf U Epithel Cells (Auto) 20-30 H (0-5) /lpf Urine Bacteria (Auto) Negative (Negative) Phenobarbital (15-40) mcg/mL 11/11/18 Range/Units 22:13 WBC (4.8-10.8) K/uL RBC (4.2-5.4) M/uL Hgb (12.0-16.0) g/dL POC Hgb (12.0-16.0) g/dl Hct (37-47) % POC Hct (37-47) % MCV (80-100) fL MCH (25-34) pg MCHC (32-36) g/dL RDW Std Deviation (36.4-46.3) fL RDW Coeff of Archana (11.5-14.5) % Plt Count (130-400) K/uL MPV (7.4-10.4) fL Immature Gran % (Auto) % Neut % (Auto) % Lymph % (Auto) % [place] % (Auto) % Eos % (Auto) % Baso % (Auto) % Immature Gran # (Auto) (0.00-0.02) K/uL Neut # (Auto) (1.4-6.5) K/uL Lymph # (Auto) (1.2-3.4) K/uL [place] # (Auto) (0.11-0.59) K/uL Eos # (Auto) (0-0.5) K/uL Baso # (Auto) (0-0.2) K/uL PT (9.0-12.0) Seconds INR (0.9-1.1) VBG pH (7.36-7.41) VBG pCO2 (38-50) mmHg VBG pO2 mmHg VBG HCO3 mmol/L VBG O2 Saturation % VBG Base Excess mEq/L Barometric Pressure mm/Hg POC Sodium (135-144) mEq/L Sodium (136-145) mmol/L POC Potassium (3.3-5.0) mEq/L Potassium (3.5-5.1) mmol/L POC Chloride (101-112) mEq/L Chloride (98-107) mmol/L Carbon Dioxide (21-32) mmol/L POC Total CO2 (24-31) mEq/l Anion Gap (3-11) POC Anion Gap (16-25) mmol/L POC BUN (7-18) mg/dl BUN (7-18) mg/dl Creatinine (0.6-1.2) mg/dl POC Creatinine (0.6-1.3) mg/dl Est Cr Clr Drug Dosing ml/min Est GFR ( Amer) Est GFR (Non-Af Amer) BUN/Creatinine Ratio (10-20) Glucose (70-99) mg/dl POC Glucose 165 H (70-99) POC Glucose (other) (70-99) mg/dl Calcium (8.5-10.1) mg/dl POC Ioniz Calcium Onel (1.12-1.32) mmol/l Total Bilirubin (0.2-1) mg/dl AST (15-37) U/L ALT (12-78) U/L Alkaline Phosphatase (45-117) U/L Total Creatine Kinase (26-192) U/L Troponin I (0-0.045) ng/ml Total Protein (6.4-8.2) gm/dl Albumin (3.4-5.0) gm/dl Globulin (2.5-4.0) gm/dl Albumin/Globulin Ratio (0.9-2) Beta-Hydroxybutyric Acd (0.2-2.81) mg/dl Urine Color Urine Appearance (Clear) Urine pH (4.5-7.5) Ur Specific [place] (1.000-1.030) Urine Protein (Negative) Urine Glucose (UA) (Negative) Urine Ketones (Negative) Urine Blood (Negative) Urine Nitrite (Negative) Urine Bilirubin (Negative) Urine Urobilinogen (Negative) Ur Leukocyte Esterase (Negative) Urine WBC (Auto) (0-5) /hpf Urine RBC (Auto) (0-4) /hpf U Hyaline Cast (Auto) (0-5) /lpf U Epithel Cells (Auto) (0-5) /lpf Urine Bacteria (Auto) (Negative) Phenobarbital (15-40) mcg/mL Imaging Data Radiologist's Impression: Radiology results as stated below per my review and the radiologist's interpretation: XR chest 1V portable HISTORY: 63 years-old Female weakness acute generalized weakness COMPARISON: Chest radiograph 02/03/2018 TECHNIQUE: Portable AP view of the chest FINDINGS: Cardiomediastinal and hilar silhouettes are unchanged. Mild right hemidiaphragmatic elevation. No pneumothorax, pleural effusion or overt pulmonary edema. Subsegmental left basilar opacities suggest atelectasis/scarring. Remote posttraumatic with advanced degenerative changes about the right shoulder redemonstrated. Degenerative changes of the left shoulder and spine also noted. IMPRESSION: No acute process. The above report was generated using voice recognition software. It may contain grammatical, syntax or spelling errors. Electronically signed by: Andrews De Guzman M.D. 11/11/2018 7:[address] head/brain wo con CLINICAL HISTORY: 63 years-old Female with confused. Acutely altered mental status with confusion TECHNIQUE: Multiple axial CT images of the head were obtained without contrast. A dose lowering technique was utilized adhering to the principles of ALARA. CT DOSE: 537.48 mGy.cm COMPARISON: CT head 05/13/2016. FINDINGS: No acute intracranial hemorrhage, midline shift, intracranial mass, hydrocephalus, territorial ischemia or abnormal extra-axial collection. The calvarium is intact. Hyperostosis frontalis interna. The paranasal sinuses, mastoid air cells, and middle ear cavities are clear. Prior bilateral cataract repair. IMPRESSION: No acute intracranial abnormality. The above report was generated using voice recognition software. It may contain grammatical, syntax or spelling errors. Electronically signed by: Andrews De Guzman M.D. 11/11/2018 10:44 PM ECG Data Attestation: I personally reviewed and interpreted this ECG as follows: Indication: weakness Rate (beats per minute): 64 Rhythm: sinus rhythm Findings: + RBBB and + left axis deviation; no PVC Blood Pressure Blood Pressure Findings: Low blood pressure Blood Pressure Disposition: further management by hospitalist ZEESHAN Narrative Patient is a 63-year-old female who presents the ER referred in from the [facility] of [facility] for being weak, confused and slurring her words. Blood sugars by EMS were found to be in the 500s. Patient was recently started on steroids. Patient is confused and is not aware of the medications that she is truly taking. IV was established and labs were obtained. Hemoglobin was low at 9.1 but consistent with previous. INR was unremarkable. ABG with a pH of 7.35 and a CO2 of 37. BMP with mild hyponatremia. Potassium was slightly elevated at 5.2 as well although I favor this secondary to the hyperkalemia. CO2 was low at 19. No gap. Creatinine was slightly elevated off of a baseline at 1.8 up from 1.4. Glucose was in the 400s. She was given 2 doses of IV insulin. BSG trended down to 160s. UA was negative. Chest x-ray was unremarkable. CT head was negative. Phenobarbital was low. She was reevaluated on multiple occasions and was still confused, slurring her words and intermittently falling asleep. Uncertain of the true etiology although favor secondary to medications at this time. Alcohol was added on. CT head was negative. Patient was updated at bedside and discussed with the hospitalist for further evaluation Impression & Plan Altered mental status, Hyperglycemia Discharge Plan Visit Data Chief Complaint: Hyperglycemia Stated Complaint: WEAKNESS, HYPERGLYCEMIA ED Provider: Andre Nair Discharge Problem: Altered mental status, Hyperglycemia Patient Disposition: Being Evaluated by Hospitalist Discharge Instructions Ezekiel/Other Patient Handouts: ED Dyspnea Shortness of Breath Activity Restrictions/Additional Instructions: Please follow up with your primary care doctor with in the next 24 hours. Any worsening of your symptoms, please return to the ED immediately. This includes any fevers greater than 100.4, worsening pain, chest pain, shortness breath, persistent nausea, vomiting, unable to eat or drink, or any other concerning signs or symptoms from your standpoint. No driving for the remainder the night. Forms Stand Alone Forms: [facility]ly [facility] Prescriptions Prescriptions: No Action pramipexole 1 mg Tablet 1 mg PO DAILY RF: 0 atorvastatin 40 mg Tablet 40 mg PO HS RF: 0 cetirizine [Zyrtec] 10 mg Tablet 10 mg PO DAILY RF: 0 ranitidine HCl [Zantac] 300 mg tablet 300 mg PO HS RF: 0 ondansetron HCl 4 mg Tablet 4 mg PO TID PRN (Reason: Nausea) RF: 0 aspirin [Aspirin Low Dose] 81 mg tablet,delayed release (DR/EC) 81 mg PO DAILY RF: 0 gabapentin 800 mg tablet 1,600 mg PO AMPM RF: 0 meclizine 25 mg Tablet 25 mg PO TID PRN (Reason: dizzy) RF: 0 amlodipine 10 mg Tablet 10 mg PO DAILY RF: 0 ropinirole 2 mg Tablet 2 mg PO TID RF: 0 ferrous sulfate [Iron (ferrous sulfate)] 325 mg (65 mg iron) tablet 325 mg PO DAILY RF: 0 phenobarbital 64.8 mg tablet 64.8 mg PO BID RF: 0 oxybutynin chloride 5 mg Tablet Extended Release 24hr 5 mg PO DAILY RF: 0 ergocalciferol (vitamin D2) [Vitamin D2] 50,000 unit capsule 50,000 unit PO WK RF: 0 albuterol sulfate [ProAir HFA] 90 mcg/actuation Hfa Aerosol Inhaler 2 puff INHALATION Q4 PRN (Reason: Shortness Of Breath Or Wheezing) RF: 0 fluticasone [Flonase Allergy Relief] 50 mcg/actuation [facility],Suspension 1 - 2 spray INTRANASAL DAILY RF: 0 lamotrigine [Lamictal] 100 mg tablet 200 mg PO BID RF: 0 nortriptyline [Pamelor] 50 mg capsule 50 mg PO HS RF: 0 ramipril 10 mg Capsule 10 mg PO DAILY RF: 0 Novolog Flexpen U-100 Insulin 100 unit/mL insulin pen 14 unit subcut BID RF: 0 Novolog Flexpen U-100 Insulin 100 unit/mL insulin pen 15 units subcut UD RF: 0 memantine 5 mg tablet 5 mg PO BID RF: 0 duloxetine [Cymbalta] 30 mg capsule,delayed release(DR/EC) 30 mg PO DAILY RF: 0 duloxetine 60 mg Capsule,Delayed Release(Dr/Ec) 60 mg PO DAILY RF: 0 Lantus Solostar U-100 Insulin 100 unit/mL (3 mL) insulin pen 24 unit subcut HS RF: 0 ketorolac 30 mg/mL Solution 1 ml IM UD RF: 0 Calmoseptine 0.44-20.6 % Ointment 1 applic TOPICAL DAILY PRN (Reason: Unknown) RF: 0 Trulicity 1.5 mg/0.5 mL pen injector 1.5 mg subcut WK RF: 0 Referrals Referrals: Kathe Srinivasan DO [Primary Care Provider] - Discharge Problem: Altered mental status Qualifiers: Altered mental status type: unspecified Qualified Code(s): R41.82 - Altered mental status, unspecified The scribe's documentation has been prepared under my direction and personally reviewed by me in its entirety. I confirm that the note above accurately reflects all work, treatment, procedures, and medical decision making performed by me.
--- NOTE | 2018-11-12 02:23 | History & Physical Report ---
Date of Service November 12, 2018 Assessment & Plan (1) Altered mental status: The patient's initial presenting symptom reported by EMS and ED physicians was that of altered mental status, which was likely associated with blood sugar over 500. However, during my examination, the patient appeared to be improving, but she does have significant issues with speaking associated with dryness associated with oxybutynin use. She reports that she has had some much improvement with oxybutynin as far as sensation of urinary dribbling, that she will put up with dry mouth. Her prednisone outpatient dosing will not be continued, as this was likely the trigger for her hyperglycemia and altered mental state. Present on Admission?: Yes (2) Hyperglycemia due to type 2 diabetes mellitus: Likely secondary to prednisone use, which as noted above, will be discontinued. Her blood sugar improved significantly from the 515 it was noted by EMS, down to 110 by the time she was being discharged from the ED to bed upstairs. We will hold her long-acting insulin tonight, resume 24 units subcu Lantus at bedtime starting tomorrow night. Hold her standing orders for NovoLog twice daily and daily. Hold Trulicity. Placed on Accu-Cheks before meals and at bedtime with NovoLog coverage per scale. Present on Admission?: Yes (3) Hypertension: Hypertension/acute kidney injury-- Hold her outpatient IM dosing of Toradol. Hold ramipril. NSS at 100 mils per hour. Serial BMP and magnesium levels Present on Admission?: Yes (4) Acute kidney injury (nontraumatic): As above. Present on Admission?: Yes (5) Dyslipidemia: Continue atorvastatin 40 mg daily. Present on Admission?: Yes (6) Depression: Depression/seizure disorder/chronic pain syndrome with low back pain and peripheral neuropathy/restless legs syndrome/seizure disorder-- Continue outpatient regimen of duloxetine, gabapentin, lamotrigine, memantine, nortriptyline, phenobarbital, pramipexole and ropinirole Present on Admission?: Yes (7) Restless leg syndrome: Continue pramipexole and ropinirole as noted above Present on Admission?: Yes (8) Diabetic peripheral neuropathy associated with type 2 diabetes mellitus: Treatment as above. Need to keep blood sugars less than 200, to keep from additional acute worsening of her chronic condition Present on Admission?: Yes (9) GERD (gastroesophageal reflux disease): Continue ranitidine 300 mg p.o. at bedtime. Present on Admission?: Yes History of Present Illness Chief Complaint: The patient presents to the emergency department via EMS after presenting to her PCPs office in [place] with complaint of new generalized weakness over the past 2 days, confusion and blood sugar of 500 there, with EMS confirming at 515 in route to the hospital. Primary Care Provider: Kathe Srinivasan DO The patient is a 63-year-old female with a past medical history including insulin requiring diabetes mellitus, who was recently placed on prednisone for difficulties with breathing and worsening chronic pain. She reports that she had been hurting all over her body. She reports that her neuropathy, which has initially been bad in her lower extremities, has now been extending to her hands. She reports that she has been taking her diabetes and seizure medications as directed, but had stopped taking a number of her other medications because it was too difficult to count them out. Allergies Allergy/AdvReac Type Severity Reaction Status Date / Time neomycin Allergy Intermediate rash Verified 11/11/18 20:07 rosiglitazone Allergy Intermediate edema Verified 11/11/18 20:07 Sulfa (Sulfonamide Allergy Intermediate rash Verified 11/11/18 20:07 Antibiotics) sumatriptan Allergy Intermediate rash Verified 11/11/18 20:07 dihydroergotamine Allergy Unknown unknown Verified 11/11/18 20:07 phenytoin Allergy Unknown unknown Verified 11/11/18 20:07 acetaminophen [From Percocet] Allergy Unknown Verified 11/11/18 20:08 indomethacin Allergy Unknown Verified 11/11/18 20:08 oxycodone [From Percocet] Allergy Unknown Verified 11/11/18 20:08 moxifloxacin AdvReac Severe seizure Verified 11/11/18 20:07 tramadol AdvReac Severe seizure Verified 11/11/18 20:07 donepezil AdvReac Intermediate angry Verified 11/11/18 20:07 latex AdvReac Intermediate BURN, Verified 11/11/18 20:07 quetiapine AdvReac Intermediate weakness Verified 05/14/16 08:15 in legs rizatriptan AdvReac Intermediate itching Verified 05/14/16 08:15 quinine AdvReac Mild nausea/vomi Verified 05/14/16 08:15 ting verapamil AdvReac Mild NAUSEA Verified 05/14/16 08:15 VOMITING Home Medications Home Medications Medication Instructions Recorded Confirmed Type albuterol sulfate [ProAir HFA] 2 puff INHALATION Q4 PRN 11/11/18 11/11/18 History amlodipine 10 mg PO DAILY 11/11/18 11/11/18 History aspirin [Aspirin Low Dose] 81 mg PO DAILY 11/11/18 11/11/18 History atorvastatin 40 mg PO HS 11/11/18 11/11/18 History cetirizine [Zyrtec] 10 mg PO DAILY 11/11/18 11/11/18 History dulaglutide [Trulicity] 1.5 mg SUBCUT WK 11/11/18 11/11/18 History duloxetine 60 mg PO DAILY 11/11/18 11/11/18 History duloxetine [Cymbalta] 30 mg PO DAILY 11/11/18 11/11/18 History ergocalciferol (vitamin D2) 50,000 unit PO WK 11/11/18 11/11/18 History [Vitamin D2] ferrous sulfate [Iron (ferrous 325 mg PO DAILY 11/11/18 11/11/18 History sulfate)] fluticasone [Flonase Allergy 1 - 2 spray INTRANASAL DAILY 11/11/18 11/11/18 History Relief] gabapentin 1,600 mg PO AMPM 11/11/18 11/11/18 History insulin aspart U-100 [Novolog 14 unit SUBCUT BID 11/11/18 11/11/18 History Flexpen U-100 Insulin] insulin aspart U-100 [Novolog 15 units SUBCUT UD 11/11/18 11/11/18 History Flexpen U-100 Insulin] insulin glargine [Lantus Solostar 24 unit SUBCUT HS 11/11/18 11/11/18 History U-100 Insulin] ketorolac 1 ml IM UD 11/11/18 11/11/18 History lamotrigine [Lamictal] 200 mg PO BID 11/11/18 11/11/18 History meclizine 25 mg PO TID PRN 11/11/18 11/11/18 History memantine 5 mg PO BID 11/11/18 11/11/18 History menthol-zinc oxide [Calmoseptine] 1 applic TOPICAL DAILY PRN 11/11/18 11/11/18 History nortriptyline [Pamelor] 50 mg PO HS 11/11/18 11/11/18 History ondansetron HCl 4 mg PO TID PRN 11/11/18 11/11/18 History oxybutynin chloride 5 mg PO DAILY 11/11/18 11/11/18 History phenobarbital 64.8 mg PO BID 11/11/18 11/11/18 History pramipexole 1 mg PO DAILY 11/11/18 11/11/18 History ramipril 10 mg PO DAILY 11/11/18 11/11/18 History ranitidine HCl [Zantac] 300 mg PO HS 11/11/18 11/11/18 History ropinirole 2 mg PO TID 11/11/18 11/11/18 History Past Med/Surg History Medical History Chronic back pain (Chronic) Diabetic peripheral neuropathy associated with type 2 diabetes mellitus (Chronic) GERD (gastroesophageal reflux disease) (Chronic) Generalized osteoarthritis (Chronic) Migraine (Chronic) Alopecia (Chronic) Gastroparesis (Chronic) Epilepsy (Chronic) Generalized anxiety disorder (Chronic) Restless leg syndrome (Chronic) Diabetes mellitus type 2 in obese (Chronic) Depression (Chronic) Dyslipidemia (Chronic) CVA (cerebral vascular accident) Surgical History History of cholecystectomy (Resolved) Family History Other Diabetes Heart disease Seizures Social History Feels Safe at Home: Yes Smoking Status: Never smoker Review of Systems The patient denies chest pain, palpitations, shortness of breath, dyspnea on exertion, cough, lower extremity swelling, sore throat, fevers, chills, sweats, nausea, vomiting, diarrhea , constipation, abdominal pain, pelvic pain, blood in urine or stool, dysuria, urinary frequency or urgency, loss of consciousness, rash, abnormal bruising or bleeding, or night sweats. The review of systems is otherwise negative other than for that already noted above, and at least 10 systems have been reviewed. Physical Exam Vital Signs (Past 24 Hours): Last Vital Signs Temp 36.7 C 11/11/18 19:04 Pulse 66 11/12/18 00:30 Resp 16 11/12/18 00:30 BP 147/75 H 11/12/18 00:30 Pulse Ox 96 11/12/18 00:30 Physical Exam: The patient is awake, alert and oriented 3, she is periodically difficult to understand due to severely dry mouth, she is otherwise lying in bed and in no acute distress. HEENT--PERRL, EOMI, mucous membranes and oropharynx very dry. Neck--supple. No JVD. No bruits. Thyroid normal, trachea midline, no adenopathy. Heart--normal S1 and S2. No murmurs, rubs or gallops. Lungs--clear bilaterally, no respiratory distress, no accessory muscle use. Abdomen--normal bowel sounds and soft. Nontender. Nondistended. Extremities--no cyanosis or clubbing. No edema. There are good distal pulses b/l. Lower extremity is painful to light touch. Dermatologic--normal skin turgor, normal color, no abnormal lymph nodes, no rash. Neurologic--cranial nerves II through XII grossly intact. Rheumatologic--normal range of motion. Psychiatric--normal affect. Results & Data Laboratory Results Laboratory Results WBC 8.88 K/uL (4.8-10.8) 11/11/18 19: RBC 3.17 M/uL (4.2-5.4) L 11/11/18 19:24 Hgb 9.1 g/dL (12.0-16.0) L 11/11/18 19:24 POC Hgb 9.5 g/dl (12.0-16.0) L 11/11/18 19:42 Hct 27.5 % (37-47) L 11/11/18 19:24 POC Hct 28 % (37-47) L 11/11/18 19:42 MCV 86.8 fL (80-100) 11/11/18 19: MCH 28.7 pg (25-34) 11/11/18: MCHC 33.1 g/dL (32-36) 11/11/18 19:24 RDW Std Deviation 41.5 fL (36.4-46.3) 11/11/18 19: RDW Coeff of Archana 13.0 % (11.5-14.5) 11/11/18: Plt Count 187 K/uL (130-400) 11/11/18 19: MPV 10.3 fL (7.4-10.4) 11/11/18 19: Immature Gran % (Auto) 0.3 % 11/11/18 19: Neut % (Auto) 60.6 % 11/11/18 19: Lymph % (Auto) 27.5 % 11/11/18 19: [place] % (Auto) 6.0 % 11/11/18 19: Eos % (Auto) 5.1 % 11/11/18 19:24 Baso % (Auto) 0.5 % 11/11/18: Immature Gran # (Auto) 0.03 K/uL (0.00-0.02) H 11/11/18: Neut # (Auto) 5.39 K/uL (1.4-6.5) 11/11/18: Lymph # (Auto) 2.44 K/uL (1.2-3.4) 11/11/18: [place] # (Auto) 0.53 K/uL (0.11-0.59) 11/11/18: Eos # (Auto) 0.45 K/uL (0-0.5) 11/11/18: Baso # (Auto) 0.04 K/uL (0-0.2) 11/11/18: PT 10.1 Seconds (9.0-12.0) 11/11/18: INR 1.0 (0.9-1.1) 11/11/18: VBG pH 7.35 (7.36-7.41) L 11/11/18: VBG pCO2 37 mmHg (38-50) L 11/11/18: VBG pO2 49 mmHg 11/11/18: VBG HCO3 20 mmol/L 11/11/18: VBG O2 Saturation 84.4 % 11/11/18 19: VBG Base Excess -5.3 mEq/L 11/11/18: Barometric Pressure 736.4 mm/Hg 11/11/18: POC Sodium 133 mEq/L (135-144) L 11/11/18: Sodium 131 mmol/L (136-145) L 11/11/18 19:23 POC Potassium 5.2 mEq/L (3.3-5.0) H 11/11/18 19:42 Potassium 5.0 mmol/L (3.5-5.1) 11/11/18 19:23 POC Chloride 104 mEq/L (101-112) 11/11/18 19:42 Chloride 104 mmol/L (98-107) 11/11/18 19:23 Carbon Dioxide 20 mmol/L (21-32) L 11/11/18 19:23 POC Total CO2 19 mEq/l (24-31) L 11/11/18 19:42 Anion Gap 7.0 (3-11) 11/11/18 19:23 POC Anion Gap 16.0 mmol/L (16-25) 11/11/18 19:42 POC BUN 35 mg/dl (7-18) H 11/11/18 19:42 BUN 36 mg/dl (7-18) H 11/11/18 19:23 Creatinine 1.84 mg/dl (0.6-1.2) H 11/11/18 19:23 POC Creatinine 1.6 mg/dl (0.6-1.3) H 11/11/18 19:42 Est Cr Clr Drug Dosing 32.7 ml/min 11/11/18 19:23 Est GFR ( Amer) 33.0 11/11/18 19:23 Est GFR (Non-Af Amer) 28.5 11/11/18 19:23 BUN/Creatinine Ratio 19.8 (10-20) 11/11/18 19:23 Glucose 407 mg/dl (70-99) H* 11/11/18 19:23 POC Glucose 127 (70-99) H 11/12/18 00:36 POC Glucose (other) 413 mg/dl (70-99) H* 11/11/18 19:42 Calcium 7.9 mg/dl (8.5-10.1) L 11/11/18 19:23 POC Ioniz Calcium Onel 1.17 mmol/l (1.12-1.32) 11/11/18 19:42 Total Bilirubin 0.1 mg/dl (0.2-1) L 11/11/18 19:23 AST 9 U/L (15-37) L 11/11/18 19:23 ALT 15 U/L (12-78) 11/11/18 19:23 Alkaline Phosphatase 196 U/L (45-117) H 11/11/18 19:23 Total Creatine Kinase 84 U/L (26-192) 11/11/18 19:23 Troponin I < 0.015 ng/ml (0-0.045) 11/11/18 19:23 Total Protein 6.9 gm/dl (6.4-8.2) 11/11/18 19:23 Albumin 2.8 gm/dl (3.4-5.0) L 11/11/18 19:23 Globulin 4.1 gm/dl (2.5-4.0) H 11/11/18 19:23 Albumin/Globulin Ratio 0.7 (0.9-2) L 11/11/18 19: Beta-Hydroxybutyric Acd 0.74 mg/dl (0.2-2.81) 11/11/18 19:23 Urine Color Yellow 11/11/18 21:30 Urine Appearance Clear (Clear) 11/11/18 21:30 Urine pH 5.0 (4.5-7.5) 11/11/18 21:30 Ur Specific [place] 1.019 (1.000-1.030) 11/11/18 21:30 Urine Protein Trace (Negative) H 11/11/18 21:30 Urine Glucose (UA) 2+ (Negative) H 11/11/18 21:30 Urine Ketones Negative (Negative) 11/11/18 21:30 Urine Blood Negative (Negative) 11/11/18 21:30 Urine Nitrite Negative (Negative) 11/11/18 21:30 Urine Bilirubin Negative (Negative) 11/11/18 21:30 Urine Urobilinogen Negative (Negative) 11/11/18 21:30 Ur Leukocyte Esterase Negative (Negative) 11/11/18 21:30 Urine WBC (Auto) 1-5 /hpf (0-5) 11/11/18 21:30 Urine RBC (Auto) 0-4 /hpf (0-4) 11/11/18 21:30 U Hyaline Cast (Auto) 0 /lpf (0-5) 11/11/18 21:30 U Epithel Cells (Auto) 20-30 /lpf (0-5) H 11/11/18 21:30 Urine Bacteria (Auto) Negative (Negative) 11/11/18 21:30 Phenobarbital 7.4 mcg/mL (15-40) L 11/11/18 19:24 Ethyl Alcohol mg/dL < 3.0 mg/dl (0-3) 11/11/18 23:07 Diagnostic Findings [facility], [place] [phone] XRay Report Patient: MARY PENNINGTON Date: 11/11/18 MR#: [id number]: [address] Acct ID:[id number]: Date: [address] [place] [address] [facility] [place] [id number] Age: 63Location: ED Sex: F Room/Bed: Att Phy: Diagnosis: WEAKNESS, HYPERGLYCEMIA Sarika Phy: Kathe Srinivasan, DOService Date: 11/11/18 Fam Phy: Interpreting Phy: Talib De Guzman Admit Phy: Ordering Phy: Andre Nair DO cc: ~ XR chest 1V portable HISTORY: 63 years-old Female weakness acute generalized weakness COMPARISON: Chest radiograph 02/03/2018 TECHNIQUE: Portable AP view of the chest FINDINGS: Cardiomediastinal and hilar silhouettes are unchanged. Mild right hemidiaphragmatic elevation. No pneumothorax, pleural effusion or overt pulmonary edema. Subsegmental left basilar opacities suggest atelectasis/scarring. Remote posttraumatic with advanced degenerative changes about the right shoulder redemonstrated. Degenerative changes of the left shoulder and spine also noted. IMPRESSION: No acute process. The above report was generated using voice recognition software. It may contain grammatical, syntax or spelling errors. Electronically signed by: Andrews De Guzman M.D. 11/11/2018 7:49 PM [facility], [place] [phone] CT Scan Report Patient: MARY PENNINGTON Date: 11/11/18 MR#: [id number]: [address] Acct ID:[id number]: Date: [address] [place] [address] Zip: [place] [id number] Age: 63Location: ED Sex: F Room/Bed: Att Phy: Diagnosis: WEAKNESS, HYPERGLYCEMIA Sarika Phy: Kathe Srinivasan, DOService Date: 11/11/18 [facility] Phy: Interpreting Phy: Talib De Guzman Admit Phy: Ordering Phy: Andre Nair, DO cc: ~ CT head/brain wo con CLINICAL HISTORY: 63 years-old Female with confused. Acutely altered mental status with confusion TECHNIQUE: Multiple axial CT images of the head were obtained without contrast. A dose lowering technique was utilized adhering to the principles of ALARA. CT DOSE: 537.48 mGy.cm COMPARISON: CT head 05/13/2016. FINDINGS: No acute intracranial hemorrhage, midline shift, intracranial mass, hydrocephalus, territorial ischemia or abnormal extra-axial collection. The calvarium is intact. Hyperostosis frontalis interna. The paranasal sinuses, mastoid air cells, and middle ear cavities are clear. Prior bilateral cataract repair. IMPRESSION: No acute intracranial abnormality. The above report was generated using voice recognition software. It may contain grammatical, syntax or spelling errors. Electronically signed by: Andrews De Guzman M.D. 11/11/2018 10:44 PM Dictated: 11/11/182240 Transcribed: 11/11/182240 Medications Administered Home Medications Medication Instructions Recorded Confirmed albuterol sulfate [ProAir HFA] 2 puff INHALATION Q4 PRN 11/11/18 11/11/18 amlodipine 10 mg PO DAILY 11/11/18 11/11/18 aspirin [Aspirin Low Dose] 81 mg PO DAILY 11/11/18 11/11/18 atorvastatin 40 mg PO HS 11/11/18 11/11/18 cetirizine [Zyrtec] 10 mg PO DAILY 11/11/18 11/11/18 dulaglutide [Trulicity] 1.5 mg SUBCUT WK 11/11/18 11/11/18 duloxetine 60 mg PO DAILY 11/11/18 11/11/18 duloxetine [Cymbalta] 30 mg PO DAILY 11/11/18 11/11/18 ergocalciferol (vitamin D2) 50,000 unit PO WK 11/11/18 11/11/18 [Vitamin D2] ferrous sulfate [Iron (ferrous 325 mg PO DAILY 11/11/18 11/11/18 sulfate)] fluticasone [Flonase Allergy 1 - 2 spray INTRANASAL DAILY 11/11/18 11/11/18 Relief] gabapentin 1,600 mg PO AMPM 11/11/18 11/11/18 insulin aspart U-100 [Novolog 14 unit SUBCUT BID 11/11/18 11/11/18 Flexpen U-100 Insulin] insulin aspart U-100 [Novolog 15 units SUBCUT UD 11/11/18 11/11/18 Flexpen U-100 Insulin] insulin glargine [Lantus Solostar 24 unit SUBCUT HS 11/11/18 11/11/18 U-100 Insulin] ketorolac 1 ml IM UD 11/11/18 11/11/18 lamotrigine [Lamictal] 200 mg PO BID 11/11/18 11/11/18 meclizine 25 mg PO TID PRN 11/11/18 11/11/18 memantine 5 mg PO BID 11/11/18 11/11/18 menthol-zinc oxide [Calmoseptine] 1 applic TOPICAL DAILY PRN 11/11/18 11/11/18 nortriptyline [Pamelor] 50 mg PO HS 11/11/18 11/11/18 ondansetron HCl 4 mg PO TID PRN 11/11/18 11/11/18 oxybutynin chloride 5 mg PO DAILY 11/11/18 11/11/18 phenobarbital 64.8 mg PO BID 11/11/18 11/11/18 pramipexole 1 mg PO DAILY 11/11/18 11/11/18 ramipril 10 mg PO DAILY 11/11/18 11/11/18 ranitidine HCl [Zantac] 300 mg PO HS 11/11/18 11/11/18 ropinirole 2 mg PO TID 11/11/18 11/11/18 Code Status & VTE Plan Code Status Full code VTE Prophylaxis Plan VTE Prophylaxis will be ordered: Yes (1) Altered mental status Altered mental status type: unspecified Qualified Code(s): R41.82 - Altered mental status, unspecified
[2018-11-12] MEDS ORDERED: ONDANSETRON INJ 2 MG/ML 2 ML VIAL IV PRN (03:40)
[2018-11-12] MEDS ORDERED: ONDANSETRON 4 MG TAB PO PRN (03:40)
[2018-11-12] MEDS ORDERED: POLYETHYLENE (MIRALAX) 17 GM PACK PO PRN (03:40)
[2018-11-12 04:19] LABS: Basophils # (auto) 0.04 K/uL (0-0.2); Basophils % (auto) 0.5 %; Eosinophils # (auto) 0.49 K/uL (0-0.5); Eosinophils % (auto) 6.1 %; Hematocrit (blood only) 27.9 % (37-47); Hemoglobin 9.3 g/dL (12.0-16.0); Immature Granulocytes # (auto) 0.05 K/uL (0.00-0.02); Immature Granulocytes % (auto) 0.6 %; Lymphocytes # (auto) 2.64 K/uL (1.2-3.4); Mean Corpuscular Hgb Conc 33.3 g/dL (32-36); Mean Corpuscular Volume 85.8 fL (80-100); Mean Platelet Volume 10.1 fL (7.4-10.4); Monocytes # (auto) 0.48 K/uL (0.11-0.59); Neutrophils # (auto) 4.29 K/uL (1.4-6.5); Neutrophils % (auto) 53.8 %; Platelet Count 184 K/uL (130-400); RDW Coefficient of Variation 12.9 % (11.5-14.5); RDW Standard Deviation 40.9 fL (36.4-46.3); Red Blood Count 3.25 M/uL (4.2-5.4); White Blood Count 7.99 K/uL (4.8-10.8)
[2018-11-12] MEDS: SODIUM CHLORIDE 0.9% 1000ML 1,000 ML IV SCH ×3 (04:19→23:05)
[2018-11-12 04:29] LABS: Partial Thromboplastin Ratio 0.8; Partial Thromboplastin Time 20.6 Seconds (21.0-31.0); Prothrombin Time 10.3 Seconds (9.0-12.0)
[2018-11-12] MEDS ORDERED: GLUCAGON FOR INJ 1 MG VIAL IM PRN (04:30)
[2018-11-12] MEDS ORDERED: ALBUTEROL HFA 8 GM INHALER INH PRN (04:30)
[2018-11-12] MEDS ORDERED: GLUCOSE 10 TABS/TUBE PO PRN (04:30)
[2018-11-12] MEDS ORDERED: CARBOHYDRATES FOR HYPOGLYCEMIA PO PRN (04:30)
[2018-11-12] MEDS ORDERED: GLUCOSE 40% GEL 15 GM TUBE PO PRN (04:30)
[2018-11-12] MEDS ORDERED: DEXTROSE 50% 50 ML SYRINGE IV PRN (04:30)
[2018-11-12 04:40] LABS: Alanine Aminotransferase 14 U/L (12-78); Albumin Globulin Ratio 0.7 (0.9-2); Albumin Level 2.8 gm/dl (3.4-5.0); Alkaline Phosphatase 186 U/L (45-117); Aspartate Aminotransferase 11 U/L (15-37); BUN Creatinine Ratio 20.7 (10-20); Bilirubin,Total 0.2 mg/dl (0.2-1); Blood Urea Nitrogen 32 mg/dl (7-18); Carbon Dioxide 22 mmol/L (21-32); Chloride 112 mmol/L (98-107); Creatinine Clr Calc Pharmacy 38.4 ml/min; Est GFR (Non-African American) 34.5; Glucose 133 mg/dl (70-99); Potassium 4.8 mmol/L (3.5-5.1); Sodium 139 mmol/L (136-145); Total Protein 6.8 gm/dl (6.4-8.2); Troponin I < 0.015 ng/ml (0-0.045)
[2018-11-12] MEDS: ALBUT/IPRATROP 3MG/0.5MG NEB 3 ML VIAL NEB SCH ×4 (06:54→20:09)
[2018-11-12] MEDS: BUDESONIDE 0.5 MG/2 ML VIAL (PULMICORT) NEB SCH ×2 (06:54→20:09)
[2018-11-12] MEDS: ASPIRIN 81 MG ECTAB PO SCH (08:55)
[2018-11-12] MEDS: DULOXETINE HCL 60 MG CAP PO SCH (08:55)
[2018-11-12] MEDS: FLUTICASONE PROPIONATE NA SPR 16 GM BTL NAE SCH (08:55)
[2018-11-12] MEDS: AMLODIPINE BESYLATE 5 MG TAB PO SCH (08:55)
[2018-11-12] MEDS: DULOXETINE HCL 30 MG CAP PO SCH (08:56)
[2018-11-12] MEDS: ROPINIROLE HCL 1 MG TABLET PO SCH ×3 (08:56→21:50)
[2018-11-12] MEDS: lamoTRIgine 100 MG TAB PO SCH ×2 (08:57→21:51)
[2018-11-12] MEDS: PRAMIPEXOLE DIHYDROCHLO 0.5 MG TAB PO SCH (08:57)
[2018-11-12] MEDS: MEMANTINE HCL 5 MG TAB PO SCH ×2 (08:57→21:51)
[2018-11-12] MEDS: OXYBUTYNIN CHLORIDE XL 5 MG TABCR PO SCH (08:58)
[2018-11-12] MEDS: HEPARIN SOD 5,000 UNIT/0.5 ML VIAL SQ SCH ×2 (08:58→21:55)
[2018-11-12] MEDS: FERROUS SULFATE 325 MG TAB PO SCH (08:59)
[2018-11-12] MEDS: CETIRIZINE HCL 10 MG TABLET PO SCH (08:59)
[2018-11-12] MEDS ORDERED: GABAPENTIN 800 MG TAB PO SCH (09:00)
[2018-11-12] MEDS: INSULIN ASPART 100 UNITS/ML 3 ML PEN SC SCH ×5 (09:06→22:23)
[2018-11-12] MEDS: PHENobarbital 32.4 MG TAB PO SCH ×2 (09:18→22:00)
[2018-11-12] MEDS: DICLOFENAC SOD 1% GEL 100 GM TUBE EXT SCH ×3 (12:38→21:50)
[2018-11-12] MEDS: ACETAMINOPHEN 325 MG TAB PO SCH ×2 (12:38→21:49)
[2018-11-12] MEDS: GABAPENTIN 300 MG CAP PO SCH ×2 (13:46→21:49)
--- NOTE | 2018-11-12 18:26 | Hospitalist Progress Note ---
Date of Service November 12, 2018 Assessment & Plan (1) Altered mental status: Likely related to hyperglycemia, this seems to have improved (2) Hyperglycemia due to type 2 diabetes mellitus: Likely secondary to prednisone use, improved significantly, her A1c is 10 and baseline control appears to be poor. I tried to educate her on this extensively, she did express some understanding, but also some reticence to learn new understanding as it relates to her diabetes, as she seemed a bit reticent to take total ownership of the situation. (3) Hypertension: Follow, continue to hold EDUARDO (4) Acute kidney injury (nontraumatic): As above. Seems to be improving, improved sugar control appears to have helped (5) Dyslipidemia: atorvastatin 40 mg daily. (6) Depression: Depression/restless legs syndrome/seizure disorder-- Continue outpatient regimen of duloxetine, gabapentin, lamotrigine, memantine, nortriptyline, phenobarbital, pramipexole and ropinirole, see below otherwise as far as chronic pain (7) Restless leg syndrome: Continue pramipexole and ropinirole as noted above (8) Diabetic peripheral neuropathy associated with type 2 diabetes mellitus: And chronic pain Chronic right shoulder pain appears to be due to the chronic rotator cuff tear, ankle pain likely due to postsurgical arthritis and skin changes, as well as her underlying neuropathy -PT/OT eval and treatI suspect if we get her more functional that will help a good deal -Voltaren gel 4 times daily to both the shoulder and ankle -Increase gabapentin to 900 3 times daily (she noted her home dose being 800 3 times daily) -At a baseline of Tylenol 650 twice daily -Outpatient referral to pain management (9) GERD (gastroesophageal reflux disease): Continue ranitidine 300 mg p.o. at bedtime. (10) Discharge planning issues: Her functional status seems quite low, PT/OT eval and treathopefully we could get her to inpatient rehab to improve her baseline Time in the room approximately 1015, time out of the room approximately 10:45 AM. Subjective Feeling about the same, no she did not sleep well. Her mental status does seem to be better. Her sugars are better. She notes chronic right ankle pain that is going on for at least 3 years, and chronic right shoulder pain for quite a while as well. She relates the right shoulder pain being due to a rotator cuff tear and a broken humerus, but has not been operated on because her sugars are so out of control, the right ankle pain apparently was sprain and fracture that was repaired surgically with chronic pain thereafter, as well as an underlying component of diabetic neuropathy. She notes when she was on Voltaren gel it did help some, she notes chronic pain is about a 9, on the gel it was may be a 7 or an 8, but it was notably better, she also notes generally feeling weak and off balance. Review of Systems All systems reviewed & are unremarkable except as noted in HPI & below Physical Exam Vital Signs (Past 24 Hours): Last Vital Signs Temp 36.8 C 11/12/18 14:51 Pulse 77 11/12/18 16:11 Resp 18 11/12/18 15:16 BP 133/67 11/12/18 14:51 Pulse Ox 98 11/12/18 15:16 Physical Exam: General she is awake alert oriented x3, mildly anxious but no distress. HEENT normocephalic atraumatic mucous membranes are moist. Right shoulder is limited range of motion mostly in abduction flexion extension, right ankle is tender to palpation including the forefoot and the ankle with no erythema no effusions no crepitus. The remainder of her exam is benign (1) Altered mental status Altered mental status type: unspecified Qualified Code(s): R41.82 - Altered mental status, unspecified
[2018-11-12] MEDS: NORTRIPTYLINE HCL 25 MG CAP PO SCH (21:51)
[2018-11-12] MEDS: INSULIN GLARGINE SOLOSTAR 100 UNITS/ML 3 ML PEN SQ SCH (21:52)
[2018-11-12] MEDS: ATORVASTATIN 40 MG TAB PO SCH (21:52)
[2018-11-13] MEDS: ACETAMINOPHEN 325 MG TAB PO SCH ×4 (01:01→22:25)
[2018-11-13 05:53] LABS: Basophils # (auto) 0.03 K/uL (0-0.2); Basophils % (auto) 0.4 %; Eosinophils # (auto) 0.31 K/uL (0-0.5); Eosinophils % (auto) 4.2 %; Hemoglobin 8.6 g/dL (12.0-16.0); Immature Granulocytes # (auto) 0.03 K/uL (0.00-0.02); Immature Granulocytes % (auto) 0.4 %; Lymphocytes # (auto) 2.43 K/uL (1.2-3.4); Lymphocytes % (auto) 32.9 %; Mean Corpuscular Hgb Conc 33.1 g/dL (32-36); Mean Platelet Volume 9.5 fL (7.4-10.4); Monocytes # (auto) 0.36 K/uL (0.11-0.59); Monocytes % (auto) 4.9 %; Neutrophils # (auto) 4.23 K/uL (1.4-6.5); Neutrophils % (auto) 57.2 %; Platelet Count 193 K/uL (130-400); RDW Coefficient of Variation 13.3 % (11.5-14.5); RDW Standard Deviation 42.4 fL (36.4-46.3); Red Blood Count 2.99 M/uL (4.2-5.4); White Blood Count 7.39 K/uL (4.8-10.8)
[2018-11-13 06:13] LABS: Prothrombin Time 10.5 Seconds (9.0-12.0)
[2018-11-13 06:20] LABS: RBC Morphology Unremarkable
[2018-11-13 06:24] LABS: Albumin Level 2.5 gm/dl (3.4-5.0); BUN Creatinine Ratio 19.9 (10-20); Calcium 8.1 mg/dl (8.5-10.1); Creatinine Clr Calc Pharmacy 40.3 ml/min; Est GFR (African American) 43.6; Est GFR (Non-African American) 37.6; Potassium 5.1 mmol/L (3.5-5.1)
[2018-11-13 06:27] LABS: Albumin Globulin Ratio 0.6 (0.9-2); Bilirubin,Total 0.3 mg/dl (0.2-1); Globulin 3.9 gm/dl (2.5-4.0); Total Protein 6.4 gm/dl (6.4-8.2)
[2018-11-13] MEDS: ALBUT/IPRATROP 3MG/0.5MG NEB 3 ML VIAL NEB SCH (07:38)
[2018-11-13] MEDS: BUDESONIDE 0.5 MG/2 ML VIAL (PULMICORT) NEB SCH (07:42)
[2018-11-13] MEDS: HEPARIN SOD 5,000 UNIT/0.5 ML VIAL SQ SCH ×2 (08:38→22:26)
[2018-11-13] MEDS: DICLOFENAC SOD 1% GEL 100 GM TUBE EXT SCH ×4 (08:38→22:30)
[2018-11-13] MEDS: GABAPENTIN 300 MG CAP PO SCH ×3 (08:39→22:27)
[2018-11-13] MEDS: OXYBUTYNIN CHLORIDE XL 5 MG TABCR PO SCH (08:39)
[2018-11-13] MEDS: ASPIRIN 81 MG ECTAB PO SCH (08:39)
[2018-11-13] MEDS: ROPINIROLE HCL 1 MG TABLET PO SCH ×3 (08:39→22:28)
[2018-11-13] MEDS: PRAMIPEXOLE DIHYDROCHLO 0.5 MG TAB PO SCH (08:39)
[2018-11-13] MEDS: AMLODIPINE BESYLATE 5 MG TAB PO SCH (08:40)
[2018-11-13] MEDS: MEMANTINE HCL 5 MG TAB PO SCH ×2 (08:40→22:29)
[2018-11-13] MEDS: FERROUS SULFATE 325 MG TAB PO SCH (08:40)
[2018-11-13] MEDS: DULOXETINE HCL 30 MG CAP PO SCH (08:40)
[2018-11-13] MEDS: CETIRIZINE HCL 10 MG TABLET PO SCH (08:40)
[2018-11-13] MEDS: DULOXETINE HCL 60 MG CAP PO SCH (08:40)
[2018-11-13] MEDS: lamoTRIgine 100 MG TAB PO SCH ×2 (08:41→22:29)
[2018-11-13] MEDS: FLUTICASONE PROPIONATE NA SPR 16 GM BTL NAE SCH (08:41)
[2018-11-13] MEDS: INSULIN ASPART 100 UNITS/ML 3 ML PEN SC SCH ×4 (08:46→22:19)
[2018-11-13] MEDS: PHENobarbital 32.4 MG TAB PO SCH ×2 (09:02→22:38)
--- NOTE | 2018-11-13 17:10 | Hospitalist Progress Note ---
Date of Service November 13, 2018 Assessment & Plan (1) Altered mental status: Likely related to hyperglycemia, this seems to have improved (2) Hyperglycemia due to type 2 diabetes mellitus: Likely secondary to prednisone use, improved significantly, her A1c is 10 and baseline control appears to be poor. Continue basal bolus insulin management, adjust insulins as needed. Ongoing education if she will allow. (3) Hypertension: Follow, resume lisinopril (4) Acute kidney injury (nontraumatic): As above. Seems to be improving, improved sugar control appears to have helped, continue to follow periodically (5) Dyslipidemia: atorvastatin 40 mg daily. (6) Depression: Depression/restless legs syndrome/seizure disorder-- Continue outpatient regimen of duloxetine, gabapentin, lamotrigine, memantine, nortriptyline, phenobarbital, pramipexole and ropinirole, see below otherwise as far as chronic pain (7) Restless leg syndrome: Continue pramipexole and ropinirole as noted above (8) Diabetic peripheral neuropathy associated with type 2 diabetes mellitus: And chronic pain Chronic right shoulder pain appears to be due to the chronic rotator cuff tear, ankle pain likely due to postsurgical arthritis and skin changes, as well as her underlying neuropathy -PT/OT darlyn and prabhu, with hopeful ongoing treatment at acute inpatient rehab tI suspect if we get her more functional that will help a good deal -Voltaren gel 4 times daily to both the shoulder and ankle to continue indefinitely -Increased gabapentin to 900 3 times daily (she noted her home dose being 800 3 times daily) -Continue baseline of Tylenol 650 twice daily -Outpatient referral to pain management (question of benefit of nerve block for her right shoulder) (9) GERD (gastroesophageal reflux disease): Continue ranitidine 300 mg p.o. at bedtime. (10) Discharge planning issues: Her functional status seems quite low, PT/OT darlyn corroborates this, hopefully she can get to inpatient rehab (11) Fecal incontinence: Given her history this seems most likely overflow incontinence. We discussed imaging versus empiric treatment, and agreed to gently start empiric treatment with MiraLAX twice daily Subjective Feels like the pain is a little bit better. Does feel very weak and shaky on her feet, still would prefer to go to [facility] if at all possible. Shoulder pain and ankle pain improving although still bad. She also notes fecal incont inence at times. Usually she feels like she needs to void and then whenever she stands up it just happens. She notes her bowel habits include a lot of small and chunky stools, occasionally things that appear to be diarrhea, and occasionally more of a formed stool. Review of Systems All systems reviewed & are unremarkable except as noted in HPI & below Physical Exam Vital Signs (Past 24 Hours): Last Vital Signs Temp 37.0 C 11/13/18 15:19 Pulse 73 11/13/18 15:19 Resp 16 11/13/18 15:19 BP 115/65 11/13/18 15:19 Pulse Ox 94 11/13/18 15:19 Physical Exam: General she is awake alert oriented x3 pleasant no distress. HEENT normocephalic atraumatic mucous membranes are moist. Breathing is unlabored no accessory muscle use good effort. Skin shows no rashes no pallor or icterus. Abdomen is soft moderately distended nontender no masses or organomegaly. (1) Altered mental status Altered mental status type: unspecified Qualified Code(s): R41.82 - Altered mental status, unspecified
[2018-11-13 21:13] LABS: Amphetamines+Metham, Urine Neg (Neg); Barbiturates, Urine Pos (Neg); Benzodiazepine, Urine Neg (Neg); Cocaine, Urine Neg (Neg); MDMA (Ecstacy), Urine Neg (Neg); Methadone, Urine Neg (Neg); Opiate, Urine Neg (Neg); Phencyclidine, Urine Neg (Neg)
[2018-11-13] MEDS: POLYETHYLENE (MIRALAX) 17 GM PACK PO SCH (22:23)
[2018-11-13] MEDS: INSULIN GLARGINE SOLOSTAR 100 UNITS/ML 3 ML PEN SQ SCH (22:23)
[2018-11-13] MEDS: ATORVASTATIN 40 MG TAB PO SCH (22:27)
[2018-11-13] MEDS: NORTRIPTYLINE HCL 25 MG CAP PO SCH (22:28)
[2018-11-14 06:26] LABS: Basophils # (auto) 0.03 K/uL (0-0.2); Basophils % (auto) 0.3 %; Eosinophils # (auto) 0.51 K/uL (0-0.5); Eosinophils % (auto) 5.1 %; Hemoglobin 8.9 g/dL (12.0-16.0); Immature Granulocytes # (auto) 0.05 K/uL (0.00-0.02); Immature Granulocytes % (auto) 0.5 %; Lymphocytes # (auto) 2.72 K/uL (1.2-3.4); Mean Corpuscular Volume 87.9 fL (80-100); Mean Platelet Volume 10.4 fL (7.4-10.4); Monocytes # (auto) 0.46 K/uL (0.11-0.59); Monocytes % (auto) 4.6 %; Neutrophils % (auto) 62.5 %; Platelet Count 216 K/uL (130-400); RDW Coefficient of Variation 13.9 % (11.5-14.5); RDW Standard Deviation 44.2 fL (36.4-46.3); Red Blood Count 3.07 M/uL (4.2-5.4); White Blood Count 10.07 K/uL (4.8-10.8)
[2018-11-14 06:54] LABS: BUN Creatinine Ratio 20.4 (10-20); Calcium 8.5 mg/dl (8.5-10.1); Creatinine Clr Calc Pharmacy 39.5 ml/min; Est GFR (African American) 41.9; Est GFR (Non-African American) 36.1; Potassium 5.1 mmol/L (3.5-5.1)
[2018-11-14] MEDS: lamoTRIgine 100 MG TAB PO SCH ×2 (09:16→20:30)
[2018-11-14] MEDS: AMLODIPINE BESYLATE 5 MG TAB PO SCH (09:16)
[2018-11-14] MEDS: CETIRIZINE HCL 10 MG TABLET PO SCH (09:17)
[2018-11-14] MEDS: PRAMIPEXOLE DIHYDROCHLO 0.5 MG TAB PO SCH (09:17)
[2018-11-14] MEDS: GABAPENTIN 300 MG CAP PO SCH ×3 (09:17→20:31)
[2018-11-14] MEDS: OXYBUTYNIN CHLORIDE XL 5 MG TABCR PO SCH (09:17)
[2018-11-14] MEDS: FERROUS SULFATE 325 MG TAB PO SCH (09:17)
[2018-11-14] MEDS: ASPIRIN 81 MG ECTAB PO SCH (09:17)
[2018-11-14] MEDS: DULOXETINE HCL 30 MG CAP PO SCH (09:18)
[2018-11-14] MEDS: ROPINIROLE HCL 1 MG TABLET PO SCH ×3 (09:18→20:31)
[2018-11-14] MEDS: DULOXETINE HCL 60 MG CAP PO SCH (09:18)
[2018-11-14] MEDS: ACETAMINOPHEN 325 MG TAB PO SCH ×3 (09:19→20:30)
[2018-11-14] MEDS: MEMANTINE HCL 5 MG TAB PO SCH ×2 (09:19→20:30)
[2018-11-14] MEDS: POLYETHYLENE (MIRALAX) 17 GM PACK PO SCH ×2 (09:20→20:29)
[2018-11-14] MEDS: DICLOFENAC SOD 1% GEL 100 GM TUBE EXT SCH ×4 (09:21→20:31)
[2018-11-14] MEDS: FLUTICASONE PROPIONATE NA SPR 16 GM BTL NAE SCH (09:22)
[2018-11-14] MEDS: HEPARIN SOD 5,000 UNIT/0.5 ML VIAL SQ SCH ×2 (09:22→20:31)
[2018-11-14] MEDS: INSULIN ASPART 100 UNITS/ML 3 ML PEN SC SCH ×4 (09:23→20:30)
[2018-11-14] MEDS: PHENobarbital 32.4 MG TAB PO SCH ×2 (09:53→20:30)
--- NOTE | 2018-11-14 17:35 | Hospitalist Progress Note ---
Date of Service November 14, 2018 Assessment & Plan (1) Altered mental status: Likely related to hyperglycemia, this seems to have improved, follow sugars (2) Hyperglycemia due to type 2 diabetes mellitus: Likely secondary to prednisone use, improved significantly, her A1c is 10 and baseline control appears to be poor. Continue basal bolus insulin management, adjust insulins as needed. sugars have been reasonable (3) Hypertension: Follow, continue lisinopril (4) Acute kidney injury (nontraumatic): As above. follow periodically (5) Dyslipidemia: atorvastatin 40 mg daily. (6) Depression: Depression/restless legs syndrome/seizure disorder-- Continue outpatient regimen of duloxetine, gabapentin, lamotrigine, memantine, nortriptyline, phenobarbital, pramipexole and ropinirole, see below otherwise as far as chronic pain (7) Restless leg syndrome: Continue pramipexole and ropinirole as noted above (8) Diabetic peripheral neuropathy associated with type 2 diabetes mellitus: And chronic pain Chronic right shoulder pain appears to be due to the chronic rotator cuff tear, ankle pain likely due to postsurgical arthritis and skin changes, as well as her underlying neuropathy -PT/OT eval and treat, with hopeful ongoing treatment at acute inpatient rehab I suspect if we get her more functional that will help a good deal -Voltaren gel 4 times daily to both the shoulder and ankle to continue indefinitely -add lidocaine patch to shoulder HS -continue gabapentin at 900 3 times daily (she noted her home dose being 800 3 times daily) -Continue baseline of Tylenol 650 twice daily -Outpatient referral to pain management (question of benefit of nerve block for her right shoulder) (9) GERD (gastroesophageal reflux disease): Continue ranitidine 300 mg p.o. at bedtime. (10) Discharge planning issues: Her functional status seems quite low, PT/OT eval corroborates this, hopefully she can get to inpatient rehab once approved by insurance (11) Fecal incontinence: Given her history this seems most likely overflow incontinence. empiric trial of MiraLAX twice daily (12) DVT prophylaxis: heparin SQ Subjective Awaiting insurance approval of rehab. Pain seems to be improved some, she notes that the topical Voltaren helps a good deal. She would very much like to rehab. No other current complaints. Review of Systems All systems reviewed & are unremarkable except as noted in HPI & below Physical Exam Vital Signs (Past 24 Hours): Last Vital Signs Temp 36.9 C 11/14/18 14:48 Pulse 78 11/14/18 14:48 Resp 18 11/14/18 14:48 BP 145/54 H 11/14/18 14:48 Pulse Ox 98 11/14/18 14:48 Physical Exam: General she is awake alert oriented x3 pleasant no distress. H EENT normocephalic atraumatic mucous membranes moist. Breathing is unlabored no accessory muscle use good effort. Musculoskeletal shows a very limited range of motion in her right arm with painful movement. Skin shows no rashes no pallor or icterus. (1) Altered mental status Altered mental status type: unspecified Qualified Code(s): R41.82 - Altered mental status, unspecified
[2018-11-14] MEDS: INSULIN GLARGINE SOLOSTAR 100 UNITS/ML 3 ML PEN SQ SCH (20:29)
[2018-11-14] MEDS: NORTRIPTYLINE HCL 25 MG CAP PO SCH (20:30)
[2018-11-14] MEDS: LIDOCAINE 5% 1 PATCH TD SCH (20:31)
[2018-11-14] MEDS: ATORVASTATIN 40 MG TAB PO SCH (20:31)
[2018-11-15] MEDS: PHENobarbital 32.4 MG TAB PO SCH ×2 (08:23→21:52)
[2018-11-15] MEDS: CETIRIZINE HCL 10 MG TABLET PO SCH (08:23)
[2018-11-15] MEDS: GABAPENTIN 300 MG CAP PO SCH ×3 (08:23→21:51)
[2018-11-15] MEDS: ROPINIROLE HCL 1 MG TABLET PO SCH ×3 (08:23→21:52)
[2018-11-15] MEDS: OXYBUTYNIN CHLORIDE XL 5 MG TABCR PO SCH (08:24)
[2018-11-15] MEDS: DULOXETINE HCL 60 MG CAP PO SCH (08:24)
[2018-11-15] MEDS: FERROUS SULFATE 325 MG TAB PO SCH (08:24)
[2018-11-15] MEDS: ASPIRIN 81 MG ECTAB PO SCH (08:24)
[2018-11-15] MEDS: DULOXETINE HCL 30 MG CAP PO SCH (08:24)
[2018-11-15] MEDS: AMLODIPINE BESYLATE 5 MG TAB PO SCH (08:24)
[2018-11-15] MEDS: MEMANTINE HCL 5 MG TAB PO SCH ×2 (08:25→21:52)
[2018-11-15] MEDS: ACETAMINOPHEN 325 MG TAB PO SCH ×3 (08:25→21:51)
[2018-11-15] MEDS: PRAMIPEXOLE DIHYDROCHLO 0.5 MG TAB PO SCH (08:26)
[2018-11-15] MEDS: DICLOFENAC SOD 1% GEL 100 GM TUBE EXT SCH ×4 (08:26→21:52)
[2018-11-15] MEDS: lamoTRIgine 100 MG TAB PO SCH ×2 (08:26→21:51)
[2018-11-15] MEDS: POLYETHYLENE (MIRALAX) 17 GM PACK PO SCH (08:27)
[2018-11-15] MEDS: HEPARIN SOD 5,000 UNIT/0.5 ML VIAL SQ SCH ×2 (08:27→21:51)
[2018-11-15] MEDS: INSULIN ASPART 100 UNITS/ML 3 ML PEN SC SCH ×4 (08:28→21:53)
[2018-11-15] MEDS: FLUTICASONE PROPIONATE NA SPR 16 GM BTL NAE SCH (08:32)
[2018-11-15] MEDS: MECLIZINE HCL 25 MG TAB PO PRN (14:46)
--- NOTE | 2018-11-15 16:59 | Hospitalist Progress Note ---
Date of Service November 15, 2018 Assessment & Plan (1) Altered mental status: Likely related to hyperglycemia, this seems to have improved, follow sugars (2) Hyperglycemia due to type 2 diabetes mellitus: Likely secondary to prednisone use, improved significantly, her A1c is 10 and baseline control appears to be poor. Continue basal bolus insulin management, adjust insulins as needed. sugars under control (3) Hypertension: Follow, continue lisinopril; BP reasonable (4) Acute kidney injury (nontraumatic): As above. follow periodically (5) Dyslipidemia: atorvastatin 40 mg daily. (6) Depression: Depression/restless legs syndrome/seizure disorder-- Continue outpatient regimen of duloxetine, gabapentin, lamotrigine, memantine, nortriptyline, phenobarbital, pramipexole and ropinirole, see below otherwise as far as chronic pain (7) Restless leg syndrome: Continue pramipexole and ropinirole as noted above (8) Diabetic peripheral neuropathy associated with type 2 diabetes mellitus: And chronic pain Chronic right shoulder pain appears to be due to the chronic rotator cuff tear, ankle pain likely due to postsurgical arthritis and skin changes, as well as her underlying neuropathy -PT/OT eval and treat, with hopeful ongoing treatment at acute inpatient rehab I suspect if we get her more functional that will help a good deal -Voltaren gel 4 times daily to both the shoulder and ankle to continue indefinitely -lidocaine patch to shoulder HS -continue gabapentin at 900 3 times daily (she noted her home dose being 800 3 times daily) -Continue baseline of Tylenol 650 twice daily -Outpatient referral to pain management (question of benefit of nerve block for her right shoulder) (9) GERD (gastroesophageal reflux disease): Continue ranitidine 300 mg p.o. at bedtime. (10) Discharge planning issues: Her functional status seems quite low, PT/OT eval corroborates this, hopefully she can get to inpatient rehab once approved by insurance, would be stable for rehab once approved. she would prefer [facility] (11) Fecal incontinence: Given her history this seems most likely overflow incontinence. empiric trial of MiraLAX twice daily going well - will reduce to daily. (12) DVT prophylaxis: heparin SQ (13) Fatigue: likely multifactorial, but d/w pt untreated WESTON will clearly cause fatigue that will not get better without WESTON treatment, and that CPAP is most beneficial treatment in general. also discussed hot strip fin[employer] consequences of untreated WESTON (howie noting pulm HTN, CHF, arrhythmias) - will ask for repeat sleep study as she believes it's been about 6yrs, asked her to try again with CPAP looking at it more as a "have to" rather than an "I should" or "I want to" Subjective lidocaine patch helped shoulder pain more had 4 BM yesterday - but all formed fatigue - all the time - falls asleep really easily. worse over last 2wks has had sleep studies all saying WESTON. notes she can't tolerate CPAP, although in further discussion it becomes apparent that she hasn't tried in years Review of Systems All systems reviewed & are unremarkable except as noted in HPI & below Physical Exam Vital Signs (Past 24 Hours): Last Vital Signs Temp 36.8 C 11/15/18 15:31 Pulse 67 11/15/18 15:31 Resp 18 11/15/18 15:31 BP 117/65 11/15/18 15:31 Pulse Ox 94 11/15/18 15:31 Physical Exam: nad, fatigued, falling asleep some during conversation heent - nc at mmm breathing unlabored no accessory muscles good effort skin - no rashes no pallor or icterus neuro - cn 2-12 grossly intact msk - R arm ongoing limited ROM nothing new/changed (1) Altered mental status Altered mental status type: unspecified Qualified Code(s): R41.82 - Altered mental status, unspecified
[2018-11-15] MEDS: ATORVASTATIN 40 MG TAB PO SCH (21:51)
[2018-11-15] MEDS: LIDOCAINE 5% 1 PATCH TD SCH (21:52)
[2018-11-15] MEDS: INSULIN GLARGINE SOLOSTAR 100 UNITS/ML 3 ML PEN SQ SCH (21:52)
[2018-11-15] MEDS: NORTRIPTYLINE HCL 25 MG CAP PO SCH (21:52)
[2018-11-16] MEDS: POLYETHYLENE (MIRALAX) 17 GM PACK PO SCH (08:21)
[2018-11-16] MEDS: PHENobarbital 32.4 MG TAB PO SCH ×2 (08:23→21:23)
[2018-11-16] MEDS: INSULIN ASPART 100 UNITS/ML 3 ML PEN SC SCH ×4 (08:24→21:22)
[2018-11-16] MEDS: DULOXETINE HCL 60 MG CAP PO SCH (08:25)
[2018-11-16] MEDS: DULOXETINE HCL 30 MG CAP PO SCH (08:25)
[2018-11-16] MEDS: OXYBUTYNIN CHLORIDE XL 5 MG TABCR PO SCH (08:26)
[2018-11-16] MEDS: ASPIRIN 81 MG ECTAB PO SCH (08:27)
[2018-11-16] MEDS: FERROUS SULFATE 325 MG TAB PO SCH (08:27)
[2018-11-16] MEDS: HEPARIN SOD 5,000 UNIT/0.5 ML VIAL SQ SCH ×2 (08:28→21:35)
[2018-11-16] MEDS: FLUTICASONE PROPIONATE NA SPR 16 GM BTL NAE SCH (08:28)
[2018-11-16] MEDS: lamoTRIgine 100 MG TAB PO SCH ×2 (08:29→21:25)
[2018-11-16] MEDS: PRAMIPEXOLE DIHYDROCHLO 0.5 MG TAB PO SCH (08:30)
[2018-11-16] MEDS: MEMANTINE HCL 5 MG TAB PO SCH ×2 (08:31→21:26)
[2018-11-16] MEDS: GABAPENTIN 300 MG CAP PO SCH ×3 (08:31→21:27)
[2018-11-16] MEDS: AMLODIPINE BESYLATE 5 MG TAB PO SCH (08:32)
[2018-11-16] MEDS: ROPINIROLE HCL 1 MG TABLET PO SCH ×3 (08:33→21:29)
[2018-11-16] MEDS: ACETAMINOPHEN 325 MG TAB PO SCH ×3 (08:33→21:21)
[2018-11-16] MEDS: CETIRIZINE HCL 10 MG TABLET PO SCH (08:34)
[2018-11-16] MEDS: DICLOFENAC SOD 1% GEL 100 GM TUBE EXT SCH ×4 (08:34→21:22)
[2018-11-16 09:16] LABS: Calcium 8.9 mg/dl (8.5-10.1); Creatinine Clr Calc Pharmacy 35.3 ml/min; Est GFR (African American) 36.8; Est GFR (Non-African American) 31.8; Potassium 5.3 mmol/L (3.5-5.1)
[2018-11-16 09:28] LABS: Basophils # (auto) 0.03 K/uL (0-0.2); Basophils % (auto) 0.2 %; Eosinophils # (auto) 0.42 K/uL (0-0.5); Eosinophils % (auto) 3.2 %; Hematocrit (blood only) 28.9 % (37-47); Hemoglobin 9.5 g/dL (12.0-16.0); Immature Granulocytes # (auto) 0.06 K/uL (0.00-0.02); Immature Granulocytes % (auto) 0.5 %; Lymphocytes # (auto) 2.65 K/uL (1.2-3.4); Lymphocytes % (auto) 20.4 %; Mean Corpuscular Hgb Conc 32.9 g/dL (32-36); Mean Corpuscular Volume 88.1 fL (80-100); Mean Platelet Volume 10.1 fL (7.4-10.4); Monocytes # (auto) 0.53 K/uL (0.11-0.59); Monocytes % (auto) 4.1 %; Neutrophils # (auto) 9.27 K/uL (1.4-6.5); Neutrophils % (auto) 71.6 %; Platelet Count 247 K/uL (130-400); RBC Morphology Unremarkable; RDW Coefficient of Variation 13.8 % (11.5-14.5); RDW Standard Deviation 44.2 fL (36.4-46.3); Red Blood Count 3.28 M/uL (4.2-5.4); White Blood Count 12.96 K/uL (4.8-10.8)
--- NOTE | 2018-11-16 12:03 | Hospitalist Progress Note ---
Date of Service November 16, 2018 Assessment & Plan (1) Altered mental status: (2) Hyperglycemia due to type 2 diabetes mellitus: (3) Hypertension: (4) Acute kidney injury (nontraumatic): (5) Dyslipidemia: (6) Depression: (7) Restless leg syndrome: (8) Diabetic peripheral neuropathy associated with type 2 diabetes mellitus: (9) GERD (gastroesophageal reflux disease): (10) Discharge planning issues: (11) Fecal incontinence: (12) DVT prophylaxis: (13) Fatigue: 63-year-old white female admitted on 10/15/2018 because of altered mental status, which is likely from hyperglycemia, improved Altered mental status: Likely related to hyperglycemia, this seems to have improved, follow sugars Hyperglycemia due to type 2 diabetes mellitus: Likely secondary to prednisone use, improved significantly, Uncontrolled diabetes type 2 with A1c is 10 and baseline control appears to be poor. Continue basal bolus insulin management, adjust insulins as needed. sugars under control Hypertension: Persistent, need to adjust the medication if persistent high because patient has diabetic need to optimize to the toxic level of blood pressure, continue lisinopril; Acute kidney injury , resolved Dyslipidemia, depression, GERD, Restless leg syndrome, Diabetic peripheral neuropathy associated with type 2 diabetes mellitus: Stable continue current medication Chronic right shoulder pain due to the chronic rotator cuff tear, ankle pain likely due to postsurgical arthritis and skin changes, as well as her underlying neuropathy Continue PT/OT eval and treat, with hopeful ongoing treatment at acute inpatient rehab , continue Voltaren gel 4 times daily to both the shoulder and ankle to continue indefinitely, cont lidocaine patch to shoulder HS continue gabapentin at 900 3 times daily (she noted her home dose being 800 3 times daily) Outpatient referral to pain management (question of benefit of nerve block for her right shoulder) Discharge planning issues: Her functional status seems quite low, PT/OT eval corroborates this, hopefully she can get to inpatient rehab once approved by insurance, would be stable for rehab once approved. she would prefer [facility] Subjective Sitting on chair, complaining about chronic right shoulder pain, is been using Voltaren gel, still 5-6 out of 10, otherwise doing awake alert orientated conversational, Report generalized weakness, Review of Systems Constitutional: Positive weakness, or fatigue Respiratory: no cough, sputum, wheezing, or dyspnea on exertion Cardiac: No chest pain, No orthopnea, Abdomen: No pain, No nausea, No vomiting, No diarrhea Musculoskeletal: See above, no swelling, No calf pain, No problem reported : No dysuria, No urinary frequency, No incontinence, No hematuria Neurologic: No paralysis, No weakness, No numbness/tingling, Heme: No abnormal bleeding/bruising, No clotting problems, Skin: No rash, No itch, No new/changing skin lesions, Physical Exam Vital Signs (Past 24 Hours): Last Vital Signs Temp 36.8 C 11/16/18 07:40 Pulse 86 11/16/18 07:40 Resp 16 11/16/18 07:40 BP 166/73 H 11/16/18 07:40 Pulse Ox 96 11/16/18 07:40 Physical Exam: awake, alert and oriented 3, HEENT--PERRL, EOMI, mucous membranes Neck--supple. No JVD. No bruits. Thyroid normal, trachea midline, no adenopathy. Heart--normal S1 and S2. No murmurs, rubs or gallops. Lungs--decreased bilaterally, no respiratory distress, Abdomen--normal bowel sounds and soft. Nontender. Nondistended. Extremities--right shoulder pain, otherwise no cyanosis or clubbing. No edema. There are good distal pulses b/l. Neurologic--cranial nerves II through XII grossly intact. Rheumatologic--normal range of motion. Results & Data Laboratory Results Laboratory Results - last 24 hr 11/15/18 11/15/18 11/16/18 16:48 20:32 07:24 WBC RBC Hgb Hct MCV MCH MCHC RDW Std Deviation RDW Coeff of Archana Plt Count MPV Immature Gran % (Auto) Neut % (Auto) Lymph % (Auto) [place] % (Auto) Eos % (Auto) Baso % (Auto) Immature Gran # (Auto) Neut # (Auto) Lymph # (Auto) [place] # (Auto) Eos # (Auto) Baso # (Auto) RBC Morphology Sodium Potassium Chloride Carbon Dioxide Anion Gap BUN Creatinine Est Cr Clr Drug Dosing Est GFR ( Amer) Est GFR (Non-Af Amer) BUN/Creatinine Ratio Glucose POC Glucose 122 H 254 H 82 Calcium Magnesium 11/16/18 11/16/18 11/16/18 08:44 08:44 11:28 WBC 12.96 H RBC 3.28 L Hgb 9.5 L Hct 28.9 L MCV 88.1 MCH 29.0 MCHC 32.9 RDW Std Deviation 44.2 RDW Coeff of Archana 13.8 Plt Count 247 MPV 10.1 Immature Gran % (Auto) 0.5 Neut % (Auto) 71.6 Lymph % (Auto) 20.4 [place] % (Auto) 4.1 Eos % (Auto) 3.2 Baso % (Auto) 0.2 Immature Gran # (Auto) 0.06 H Neut # (Auto) 9.27 H Lymph # (Auto) 2.65 [place] # (Auto) 0.53 Eos # (Auto) 0.42 Baso # (Auto) 0.03 RBC Morphology Unremarkable Sodium 140 Potassium 5.3 H Chloride 109 H Carbon Dioxide 23 Anion Gap 7.0 BUN 32 H Creatinine 1.68 H Est Cr Clr Drug Dosing 35.3 Est GFR ( Amer) 36.8 Est GFR (Non-Af Amer) 31.8 BUN/Creatinine Ratio 19.0 Glucose 165 H POC Glucose 91 Calcium 8.9 Magnesium 2.0 (1) Altered mental status Altered mental status type: unspecified Qualified Code(s): R41.82 - Altered mental status, unspecified
[2018-11-16] MEDS ORDERED: SODIUM POLYSTYRENE SULFONATE 15G/60ML SUSP PO ONE (12:30)
[2018-11-16] MEDS: LIDOCAINE 5% 1 PATCH TD SCH (21:26)
[2018-11-16] MEDS: ATORVASTATIN 40 MG TAB PO SCH (21:27)
[2018-11-16] MEDS: NORTRIPTYLINE HCL 25 MG CAP PO SCH (21:28)
[2018-11-16] MEDS: INSULIN GLARGINE SOLOSTAR 100 UNITS/ML 3 ML PEN SQ SCH (21:35)
[2018-11-17 08:09] LABS: BUN Creatinine Ratio 19.1 (10-20); Calcium 8.6 mg/dl (8.5-10.1); Creatinine Clr Calc Pharmacy 39.1 ml/min; Est GFR (African American) 41.6; Est GFR (Non-African American) 35.9; Magnesium 1.9 mg/dl (1.8-2.4); Potassium 4.9 mmol/L (3.5-5.1)
[2018-11-17] MEDS: HEPARIN SOD 5,000 UNIT/0.5 ML VIAL SQ SCH ×2 (08:24→20:57)
[2018-11-17] MEDS: FLUTICASONE PROPIONATE NA SPR 16 GM BTL NAE SCH (08:24)
[2018-11-17] MEDS: OXYBUTYNIN CHLORIDE XL 5 MG TABCR PO SCH (08:25)
[2018-11-17] MEDS: AMLODIPINE BESYLATE 5 MG TAB PO SCH (08:25)
[2018-11-17] MEDS: PHENobarbital 32.4 MG TAB PO SCH (08:25)
[2018-11-17] MEDS: PRAMIPEXOLE DIHYDROCHLO 0.5 MG TAB PO SCH (08:25)
[2018-11-17] MEDS: GABAPENTIN 300 MG CAP PO SCH ×3 (08:25→21:01)
[2018-11-17] MEDS: ROPINIROLE HCL 1 MG TABLET PO SCH ×3 (08:25→20:59)
[2018-11-17] MEDS: CETIRIZINE HCL 10 MG TABLET PO SCH (08:25)
[2018-11-17] MEDS: DULOXETINE HCL 30 MG CAP PO SCH (08:25)
[2018-11-17] MEDS: lamoTRIgine 100 MG TAB PO SCH ×2 (08:25→21:01)
[2018-11-17] MEDS: ACETAMINOPHEN 325 MG TAB PO SCH ×3 (08:26→21:04)
[2018-11-17] MEDS: DULOXETINE HCL 60 MG CAP PO SCH (08:26)
[2018-11-17] MEDS: FERROUS SULFATE 325 MG TAB PO SCH (08:26)
[2018-11-17] MEDS: POLYETHYLENE (MIRALAX) 17 GM PACK PO SCH (08:26)
[2018-11-17] MEDS: ASPIRIN 81 MG ECTAB PO SCH (08:26)
[2018-11-17] MEDS: MEMANTINE HCL 5 MG TAB PO SCH ×2 (08:26→21:01)
[2018-11-17] MEDS: DICLOFENAC SOD 1% GEL 100 GM TUBE EXT SCH ×4 (08:27→21:00)
[2018-11-17] MEDS: INSULIN ASPART 100 UNITS/ML 3 ML PEN SC SCH ×4 (08:27→21:02)
[2018-11-17 15:04] LABS: Amobarbital, Urine Conf NEGATIVE NG/ML (CUTOFF=100); Phenobarbital, Urine 5164 NG/ML (CUTOFF=100); Secobarbital, Urine Conf NEGATIVE NG/ML (CUTOFF=100)
--- NOTE | 2018-11-17 15:21 | Hospitalist Progress Note ---
Date of Service November 17, 2018 Assessment & Plan (1) Altered mental status: (2) Hyperglycemia due to type 2 diabetes mellitus: (3) Hypertension: (4) Acute kidney injury (nontraumatic): (5) Dyslipidemia: (6) Depression: (7) Restless leg syndrome: (8) Diabetic peripheral neuropathy associated with type 2 diabetes mellitus: (9) GERD (gastroesophageal reflux disease): (10) Discharge planning issues: (11) Fecal incontinence: (12) DVT prophylaxis: heparin SQ (13) Fatigue: 63-year-old white female admitted on 10/15/2018 because of altered mental status, which is likely from hyperglycemia, improved Altered mental status: Likely related to hyperglycemia, this seems to have improved, follow sugars Hyperglycemia due to type 2 diabetes mellitus: Likely secondary to prednisone use, improved significantly, Uncontrolled diabetes type 2 with A1c is 10 and baseline control appears to be poor. Continue basal bolus insulin management, adjust insulins as needed. sugars under control Hypertension: Persistent, need to adjust the medication if persistent high because patient has diabetic need to optimize to the toxic level of blood pressure, continue lisinopril; Acute kidney injury , resolved Dyslipidemia, depression, GERD, Restless leg syndrome, Diabetic peripheral neuropathy associated with type 2 diabetes mellitus: Stable continue current medication Chronic right shoulder pain due to the chronic rotator cuff tear, ankle pain likely due to postsurgical arthritis and skin changes, as well as her underlying neuropathy Continue PT/OT eval and treat, with hopeful ongoing treatment at acute inpatient rehab , continue Voltaren gel 4 times daily to both the shoulder and ankle to continue indefinitely, cont lidocaine patch to shoulder HS continue gabapentin at 900 3 times daily (she noted her home dose being 800 3 times daily) Outpatient referral to pain management (question of benefit of nerve block for her right shoulder) Discharge planning issues: cont PT OT, then rehab Subjective Sitting on chair, sitting up in chair, talking over the phone, complaining about chronic right shoulder pain, is been using Voltaren gel, which have been helpful otherwise doing awake alert orientated conversational, Report generalized weakness, Review of Systems Constitutional: Positive weakness, or fatigue Respiratory: no cough, sputum, wheezing, or dyspnea on exertion Cardiac: No chest pain, No orthopnea, Abdomen: No pain, No nausea, No vomiting, No diarrhea Musculoskeletal: See above, right shoulder has limited range of motion, no swelling, No calf pain, No problem reported : No dysuria, No urinary frequency, No incontinence, No hematuria Neurologic: No paralysis, No weakness, No numbness/tingling, Heme: No abnormal bleeding/bruising, No clotting problems, Skin: No rash, No itch, No new/changing skin lesions, Physical Exam Vital Signs (Past 24 Hours): Last Vital Signs Temp 36.8 C 11/17/18 07:26 Pulse 83 11/17/18 07:26 Resp 16 11/17/18 07:26 BP 152/74 H 11/17/18 07:26 Pulse Ox 92 11/17/18 07:26 Physical Exam: Pleasant, conversational, awake, alert and oriented 3, HEENT--PERRL, EOMI, mucous membranes Neck--supple. No JVD. No bruits. Thyroid normal, trachea midline, no adenopathy. Heart--normal S1 and S2. No murmurs, rubs or gallops. Lungs--decreased bilaterally, no respiratory distress, Abdomen--normal bowel sounds and soft. Nontender. Nondistended. Extremities--right shoulder pain, with limited range of motion, , otherwise no cyanosis or clubbing. No edema. There are good distal pulses b/l. Neurologic--cranial nerves II through XII grossly intact. Rheumatologic--normal range of motion. Results & Data Laboratory Results Laboratory Results - last 24 hr 11/13/18 11/16/18 11/16/18 20:28 16:35 20:58 Sodium Potassium Chloride Carbon Dioxide Anion Gap BUN Creatinine Est Cr Clr Drug Dosing Est GFR ( Amer) Est GFR (Non-Af Amer) BUN/Creatinine Ratio Glucose POC Glucose 114 H 127 H Calcium Magnesium Urine Butalbital NEGATIVE Urine Amobarbital NEGATIVE Urine Pentobarbital NEGATIVE Urine Phenobarbital 5164 A Urine Secobarbital NEGATIVE 11/17/18 11/17/18 11/17/18 07:11 07:33 11:32 Sodium 141 Potassium 4.9 Chloride 111 H Carbon Dioxide 25 Anion Gap 5.0 BUN 29 H Creatinine 1.52 H Est Cr Clr Drug Dosing 39.1 Est GFR ( Amer) 41.6 Est GFR (Non-Af Amer) 35.9 BUN/Creatinine Ratio 19.1 Glucose 74 POC Glucose 79 192 H Calcium 8.6 Magnesium 1.9 Urine Butalbital Urine Amobarbital Urine Pentobarbital Urine Phenobarbital Urine Secobarbital (1) Altered mental status Altered mental status type: unspecified Qualified Code(s): R41.82 - Altered mental status, unspecified
[2018-11-17] MEDS: INSULIN GLARGINE SOLOSTAR 100 UNITS/ML 3 ML PEN SQ SCH (20:57)
[2018-11-17] MEDS: LIDOCAINE 5% 1 PATCH TD SCH (20:58)
[2018-11-17] MEDS: ATORVASTATIN 40 MG TAB PO SCH (20:59)
[2018-11-17] MEDS: NORTRIPTYLINE HCL 25 MG CAP PO SCH (21:00)
[2018-11-17] MEDS: MECLIZINE HCL 25 MG TAB PO PRN (23:45)
[2018-11-18 06:58] VITALS: O2SAT 94
[2018-11-18] MEDS: ASPIRIN 81 MG ECTAB PO SCH (08:39)
[2018-11-18] MEDS: DULOXETINE HCL 30 MG CAP PO SCH (08:39)
[2018-11-18] MEDS: OXYBUTYNIN CHLORIDE XL 5 MG TABCR PO SCH (08:39)
[2018-11-18] MEDS: DULOXETINE HCL 60 MG CAP PO SCH (08:39)
[2018-11-18] MEDS: lamoTRIgine 100 MG TAB PO SCH (08:40)
[2018-11-18] MEDS: PRAMIPEXOLE DIHYDROCHLO 0.5 MG TAB PO SCH (08:40)
[2018-11-18] MEDS: FLUTICASONE PROPIONATE NA SPR 16 GM BTL NAE SCH (08:40)
[2018-11-18] MEDS: FERROUS SULFATE 325 MG TAB PO SCH (08:40)
[2018-11-18] MEDS: MEMANTINE HCL 5 MG TAB PO SCH (08:41)
[2018-11-18] MEDS: AMLODIPINE BESYLATE 5 MG TAB PO SCH (08:41)
[2018-11-18] MEDS: ROPINIROLE HCL 1 MG TABLET PO SCH ×2 (08:41→13:25)
[2018-11-18] MEDS: GABAPENTIN 300 MG CAP PO SCH ×2 (08:41→13:25)
[2018-11-18] MEDS: DICLOFENAC SOD 1% GEL 100 GM TUBE EXT SCH ×3 (08:42→16:46)
[2018-11-18] MEDS: CETIRIZINE HCL 10 MG TABLET PO SCH (08:42)
[2018-11-18] MEDS: ACETAMINOPHEN 325 MG TAB PO SCH ×2 (08:42→13:25)
[2018-11-18] MEDS: INSULIN ASPART 100 UNITS/ML 3 ML PEN SC SCH ×3 (08:46→17:42)
[2018-11-18] MEDS: HEPARIN SOD 5,000 UNIT/0.5 ML VIAL SQ SCH (08:47)
[2018-11-18] MEDS: POLYETHYLENE (MIRALAX) 17 GM PACK PO SCH (08:50)
[2018-11-18 09:35] LABS: BUN Creatinine Ratio 16.9 (10-20); Calcium 9.1 mg/dl (8.5-10.1); Creatinine Clr Calc Pharmacy 37.1 ml/min; Est GFR (African American) 39.1; Est GFR (Non-African American) 33.7
[2018-11-18] MEDS ORDERED: PHENobarbital 32.4 MG TAB PO SCH (10:30)
[2018-11-18 16:04] VITALS: BP 130/72; PULSE 76; TEMP 97.9
[2018-11-18] MEDS: MECLIZINE HCL 25 MG TAB PO PRN (17:41)
--- NOTE | 2018-11-18 19:17 | Discharge Summary ---
Date of Service November 18, 2018 Admission HPI Per Admitting Provider The patient is a 63-year-old female with a past medical history including insulin requiring diabetes mellitus, who was recently placed on prednisone for difficulties with breathing and worsening chronic pain. She reports that she had been hurting all over her body. She reports that her neuropathy, which has initially been bad in her lower extremities, has now been extending to her hands. She reports that she has been taking her diabetes and seizure medications as directed, but had stopped taking a number of her other medications because it was too difficult to count them out. Principal Diagnosis no Discharge Data Allergies Allergy/AdvReac Type Severity Reaction Status Date / Time neomycin Allergy Intermediate rash Verified 11/11/18 20:07 rosiglitazone Allergy Intermediate edema Verified 11/11/18 20:07 Sulfa (Sulfonamide Allergy Intermediate rash Verified 11/11/18 20:07 Antibiotics) sumatriptan Allergy Intermediate rash Verified 11/11/18 20:07 dihydroergotamine Allergy Unknown unknown Verified 11/11/18 20:07 phenytoin Allergy Unknown unknown Verified 11/11/18 20:07 acetaminophen [From Percocet] Allergy Unknown Verified 11/11/18 20:08 indomethacin Allergy Unknown Verified 11/11/18 20:08 oxycodone [From Percocet] Allergy Unknown Verified 11/11/18 20:08 moxifloxacin AdvReac Severe seizure Verified 11/11/18 20:07 tramadol AdvReac Severe seizure Verified 11/11/18 20:07 donepezil AdvReac Intermediate angry Verified 11/11/18 20:07 latex AdvReac Intermediate BURN, Verified 11/11/18 20:07 quetiapine AdvReac Intermediate weakness Verified 05/14/16 08:15 in legs rizatriptan AdvReac Intermediate itching Verified 05/14/16 08:15 quinine AdvReac Mild nausea/vomi Verified 05/14/16 08:15 ting verapamil AdvReac Mild NAUSEA Verified 05/14/16 08:15 VOMITING Consultations 11/11/18 22:51 ED Decision to Admit Stat 11/12/18 03:40 Consult Case Management - Discharge Planning Routine 11/12/18 10:55 Consult Case Management - Discharge Planning Routine 11/13/18 17:09 Consult Case Management - Discharge Planning Routine 11/15/18 16:47 Consult [employer] consulting networking engineer Routine Ordered Studies 11/11/18 22:18 CT head/brain wo con Stat Hospital Course (1) Altered mental status: (2) Hyperglycemia due to type 2 diabetes mellitus: (3) Hypertension: (4) Acute kidney injury (nontraumatic): (5) Dyslipidemia: (6) Depression: (7) Restless leg syndrome: (8) Diabetic peripheral neuropathy associated with type 2 diabetes mellitus: (9) GERD (gastroesophageal reflux disease): Continue ranitidine 300 mg p.o. at bedtime. (10) Discharge planning issues: (11) Fecal incontinence: (12) DVT prophylaxis: (13) Fatigue: 63-year-old white female admitted on 10/15/2018 because of altered mental status, which is likely from hyperglycemia, improved Altered mental status: Likely related to hyperglycemia, this seems to have resolved Hyperglycemia due to type 2 diabetes mellitus: Likely secondary to prednisone use, improved significantly, Uncontrolled diabetes type 2 with A1c is 10 and baseline control appears to be poor. Continue basal bolus insulin management, adjust insulins as needed. sugars under control Hypertension: Persistent, little better, need to adjust the medication if persistent high because patient has diabetic need to optimize to the level of blood pressure, continue lisinopril; Acute kidney injury , resolved Dyslipidemia, depression, GERD, Restless leg syndrome, Diabetic peripheral neuropathy associated with type 2 diabetes mellitus: Stable continue current medication Chronic right shoulder pain due to the chronic rotator cuff tear, ankle pain likely due to postsurgical arthritis and skin changes, as well as her underlying neuropathy Continue PT/OT eval and treat, with hopeful ongoing treatment at acute inpatient rehab , continue Voltaren gel 4 times daily to both the shoulder and ankle to continue indefinitely, cont lidocaine patch to shoulder HS continue gabapentin at 900 3 times daily (she noted her home dose being 800 3 times daily) Outpatient referral to pain management (question of benefit of nerve block for her right shoulder) Has otherwise patient to have labs of bmp, mag level in 1 week Subjective at discharge Sitting on chair, doing well, complaining about chronic right shoulder pain, has been improving by using Voltaren gel generalized weakness, Review of Systems Constitutional: Positive weakness, or fatigue Respiratory: no cough, sputum, wheezing, or dyspnea on exertion Cardiac: No chest pain, No orthopnea, Abdomen: No pain, No nausea, No vomiting, No diarrhea Musculoskeletal: See above, right shoulder has limited range of motion, no swelling, No calf pain, No problem reported : No dysuria, No urinary frequency, No incontinence, No hematuria Neurologic: No paralysis, No weakness, No numbness/tingling, Heme: No abnormal bleeding/bruising, No clotting problems, Skin: No rash, No itch, No new/changing skin lesions, Physical Exam at discharge Pleasant, conversational, awake, alert and oriented 3, HEENT--PERRL, EOMI, mucous membranes Neck--supple. No JVD. No bruits. Thyroid normal, trachea midline, no adenopathy. Heart--normal S1 and S2. No murmurs, rubs or gallops. Lungs--decreased bilaterally, no respiratory distress, Abdomen--normal bowel sounds and soft. Nontender. Nondistended. Extremities--right shoulder pain, with limited range of motion, , otherwise no cyanosis or clubbing. No edema. There are good distal pulses b/l. Neurologic--cranial nerves II through XII grossly intact. Rheumatologic--normal range of motion. Lab data at discharge: Laboratory Results - last 24 hr 11/17/18 11/18/18 11/18/18 20:26 07:18 08:56 Sodium 140 Potassium 5.0 Chloride 112 H Carbon Dioxide 21 Anion Gap 7.0 BUN 27 H Creatinine 1.60 H Est Cr Clr Drug Dosing 37.1 Est GFR ( Amer) 39.1 Est GFR (Non-Af Amer) 33.7 BUN/Creatinine Ratio 16.9 Glucose 133 H POC Glucose 165 H 106 H Calcium 9.1 Phenobarbital 11/18/18 11/18/18 11/18/18 08:56 11:52 16:54 Sodium Potassium Chloride Carbon Dioxide Anion Gap BUN Creatinine Est Cr Clr Drug Dosing Est GFR ( Amer) Est GFR (Non-Af Amer) BUN/Creatinine Ratio Glucose POC Glucose 107 H 118 H Calcium Phenobarbital 15.0 Total Time Total Time Spent Total Time Spent (In Minutes): 36 Total Time Includes: Examination of the Patient, Discharge Planning, Medication Reconciliation and Communication With Other Providers Discharge Plan Discharge Items Patient Disposition: Transfer Inpatient Rehab Fac Reason For Visit: HYPERGLYCEMIA, DENISE, ALTERED MENTAL STATUS Discharge Diagnosis: you was having altered mental status, likely secondary to hyperglycemia acute kidney injury Condition: Fair Discharge Goals: Decrease discomfort, Diagnostic testing, Improve disease control and Increase independence Activity: Resume your previous activity Non-emergency contact: Primary Care Provider Call non-emergency contact if: you have any medication questions Follow-up/Referrals: Kathe Srinivasan, [Primary Care Provider] - 11/17/18 9:20 am (Please, follow up with Dr. Srinivasan on FridayNovember 17 at 9:20 am. *If you need to change this appointment, call the office at [phone].) Diet: Heart Healthy, Low Fat and Low Sodium (2gm) Addtl Provider Instructions: you was having altered mental status, likely secondary to hyperglycemia, you have Uncontrolled diabetes type 2 with A1c is 10 you have accelerated Hypertension: you need to adjust blood pressure medicine with your pcp you need to have labs of bmp, mag level in 1 week you need to follow up with your primary care physician in 1 week, - take medication as instructed, never overdose or any misuse, or take with alcohol, because misuse of medicine may cause organ damage or , call me, or your primary care physician if have questions of discharge medicaitons. - call your primary care physician, or go to local emergency room if has any fever/chill, chest pain, shortness of breathing, nausea/vomiting/abdominal pain, facial droop/slurry speech/local weakness, or if has any questions. - fall precaution - diet as instructed - you need to follow up with your subspecialist, such as Dr. Crowder for your right shoulder pain Prescriptions: New lidocaine 5 % Adhesive Patch,Medicated 1 patch Transdermal HS 14 Days Qty: 1 RF: 0 diclofenac sodium [Voltaren] 1 % Gel 2 applic EXT QID 14 Days Qty: 3 RF: 0 Continued pramipexole 1 mg Tablet 1 mg PO DAILY RF: 0 atorvastatin 40 mg Tablet 40 mg PO HS RF: 0 cetirizine [Zyrtec] 10 mg Tablet 10 mg PO DAILY RF: 0 ranitidine HCl [Zantac] 300 mg tablet 300 mg PO HS RF: 0 ondansetron HCl 4 mg Tablet 4 mg PO TID PRN (Reason: Nausea) RF: 0 aspirin [Aspirin Low Dose] 81 mg tablet,delayed release (DR/EC) 81 mg PO DAILY RF: 0 gabapentin 800 mg tablet 1,600 mg PO AMPM RF: 0 meclizine 25 mg Tablet 25 mg PO TID PRN (Reason: dizzy) RF: 0 amlodipine 10 mg Tablet 10 mg PO DAILY RF: 0 ropinirole 2 mg Tablet 2 mg PO TID RF: 0 ferrous sulfate [Iron (ferrous sulfate)] 325 mg (65 mg iron) tablet 325 mg PO DAILY RF: 0 phenobarbital 64.8 mg tablet 64.8 mg PO BID RF: 0 oxybutynin chloride 5 mg Tablet Extended Release 24hr 5 mg PO DAILY RF: 0 ergocalciferol (vitamin D2) [Vitamin D2] 50,000 unit capsule 50,000 unit PO WK RF: 0 albuterol sulfate [ProAir HFA] 90 mcg/actuation Hfa Aerosol Inhaler 2 puff INHALATION Q4 PRN (Reason: Shortness Of Breath Or Wheezing) RF: 0 fluticasone [Flonase Allergy Relief] 50 mcg/actuation [place],Suspension 1 - 2 spray INTRANASAL DAILY RF: 0 lamotrigine [Lamictal] 100 mg tablet 200 mg PO BID RF: 0 nortriptyline [Pamelor] 50 mg capsule 50 mg PO HS RF: 0 ramipril 10 mg Capsule 10 mg PO DAILY RF: 0 Novolog Flexpen U-100 Insulin 100 unit/mL insulin pen 14 unit subcut BID RF: 0 Novolog Flexpen U-100 Insulin 100 unit/mL insulin pen 15 units subcut UD RF: 0 memantine 5 mg tablet 5 mg PO BID RF: 0 duloxetine [Cymbalta] 30 mg capsule,delayed release(DR/EC) 30 mg PO DAILY RF: 0 duloxetine 60 mg Capsule,Delayed Release(Dr/Ec) 60 mg PO DAILY RF: 0 Lantus Solostar U-100 Insulin 100 unit/mL (3 mL) insulin pen 24 unit subcut HS RF: 0 ketorolac 30 mg/mL Solution 1 ml IM UD RF: 0 Calmoseptine 0.44-20.6 % Ointment 1 applic TOPICAL DAILY PRN (Reason: Unknown) RF: 0 Trulicity 1.5 mg/0.5 mL pen injector 1.5 mg subcut WK RF: 0 Stand-Alone Forms: [facility] Discharge Orders: Discharge Order (Routine); Ordered 11/18/18 Ordered By: Craig Husain Skilled Items Patient informed of condition?: Yes DNR: No Discharge Level of Care: Acute rehab Communicable Disease: No Discharge Prognosis: Stable Admission Data Admit Date/Time: 11/14/18 17:37 Attending Provider: Craig Husain Admit Provider: Juan Olivares Primary Care Provider: Kathe Srinivasan Other Providers: Juan Olivares ; Andre Espinoza Service: Medical Other Interventions: Discharge Summary Assessment (RN) Last Done: 11/18/18 16:59 DC Date/Time DO NOT enter until pt leaves facility: 11/18/18 19:15
== END 2018-11-18 19:15 | DRG 638 ==
LOC: 2N 18:50 → ED 18:50 → SUATTDRO 11-12 01:26 → 2N 11-12 02:26 → SUATTDRO 11-14 17:37 → 4E 11-17 14:14